=== PATIENT | male | born 1975 | race Caucasian/White ===

== ENCOUNTER → 2017-03-28 | Outpatient (CLI) | payer SELFPAY ==
--- NOTE | 2017-03-28 10:29 | CT ---
CORONARY CALCIUM SCORE CLINICAL INDICATION: High risk family history. COMPARISON: None PROCEDURE: Gated images of the coronary arteries. Coronary artery calcium scoring was performed. FINDINGS: Coronary calcium scoring - 125 LM: 0 LAD: 124 LCX: 0 RCA: 1 IMPRESSION: 1. Calcium score of 125. This places the patient at above the 90th percentile for males of equivalent age. Definite, at least moderate atherosclerotic plaque. Mild coronary artery disease highly likely with significant narrowings possible. Reported By:
== END ==
LOC: RAD 09:28
PROVIDERS: ATTEND Nurse Practitioner Family
DX: Z13.6 Encounter for screening for cardiovascular disorders (principal)

== ENCOUNTER 2021-01-01 08:27 | Inpatient (IN) ==
[2021-01-01] MEDS ORDERED: DILAUDID INJ IVP ONE ×2 (08:47→08:59)
[2021-01-01] MEDS ORDERED: ZOFRAN INJ 4 MG VIAL IVP ONE ×2 (08:47→08:59)
[2021-01-01] MEDS ORDERED: NS 1000 ML 1,000 ML ONE (08:48)
[2021-01-01] MEDS ORDERED: DILAUDID INJ ONE (08:48)
[2021-01-01] MEDS ORDERED: ZOFRAN INJ 4 MG VIAL ONE (08:48)
[2021-01-01 09:01] LABS: BASOPHILS # (AUTO) 0.1 X10^3/uL (0.0-0.1); BASOPHILS % (AUTO) 0.3 % (0.2-1.0); EOSINOPHILS # (AUTO) 0.1 x10^3/uL (0.0-0.2); EOSINOPHILS % (AUTO) 0.4 % (0.9-2.9); HEMATOCRIT 40.8 % (42.0-54.0); HEMOGLOBIN 14.3 g/dL (13.5-18.0); LYMPHOCYTES # (AUTO) 1.3 X10^3/uL (1.3-2.9); LYMPHOCYTES % (AUTO) 6.6 % (21.0-51.0); MEAN CORPUSCULAR HEMOGLOBIN 32.5 pg (27.0-34.0); MEAN CORPUSCULAR HGB CONC 35.1 g/dL (33.0-35.0); MEAN CORPUSCULAR VOLUME 92.7 fL (80.0-100.0); MEAN PLATELET VOLUME 7.8 fL (7.4-11.0); MONOCYTES # (AUTO) 1.3 x10^3/uL (0.3-0.8); MONOCYTES % (AUTO) 6.6 % (0.0-13.0); NEUTROPHILS # (AUTO) 17.1 x10^3/uL (2.2-4.8); NEUTROPHILS % (AUTO) 86.1 % (42.0-75.0); PLATELET COUNT 217 X10^3/uL (150.0-450.0); RED CELL DISTRIBUTION WIDTH 13.2 % (11.6-16.5); WHITE BLOOD COUNT 19.9 X10^3/uL (3.6-10.0)
[2021-01-01] MEDS ORDERED: NS 1000 ML 1,000 ML IV ONE (09:01)
--- NOTE | 2021-01-01 09:04 | DR.ABDMALE ---
HPI Time seen Time Seen by Provider: 01/01/21 08:59 PCP Primary Care Physician: [facility] Complaint Chief Complaint Doctors Comments: LLQ abd pain x 3 days. worse w movememnt. denies f/c. mild nausea. Chief Complaint:: Pt c/o left lower quadrant abd pain since Friday. He states he has had decreased urine output since Friday. Pt also reports n/v/d and fever. COVID-19 Coronavirus risk:travel/contact w/high risk person: No Has patient experienced Coronavirus symptoms: No Reviewed Nurses Notes Review: Yes Source History provided by:: SELF Mode of arrival Mode of Arrival: Ambulatory Timing Onset of Chief Complaint: 12/29/20 PMH PMH Past Medical History: Yes Past Medical History: Arthritis and Dyslipidemia Past Surgical History: Yes Surgical History: Ortho Surgery Past Surgical History Comment: eye surgery Family History History of Family Medical Conditions: No Social History Does patient currently use any type of tobacco product: Yes Have you used tobacco products in the last 12 months: Yes Type of Tobacco Use: Smokeless Does any household member use tobacco: No Alcohol Use: Occasionally Do you use any recreational Drugs:: No Lives With: Alone Lives Where: Home Travel Risk Coronavirus risk:travel/contact w/high risk person: No Has patient experienced Coronavirus symptoms: No Infectious screening In the last 2 months have you had wt loss of >10#?: NO Have you had fever, night sweats or hemotysis?: No Have you traveled outside the country in the last 6 months?: No Isolation: Standard ROS Review of Systems Constitutional: See HPI Eyes: No Symptoms Reported ENTM: No Symptoms Reported Respiratoy: No Symptoms Reported Cardiovascular: No Symptoms Reported Gastrointestinal/Abdominal: See HPI Genitourinary: No Symptoms Reported Neurological: No Symptoms Reported Musculoskeletal: No Symptoms Reported Integumentary: No Symptoms Reported Hematologic/Lymphatic: No Symptoms Reported All Other Systems: Reviewed and Negative PE Vital Signs Vital Signs: Temp Pulse Resp BP Pulse Ox 01/01/21 11:00 93 H 134/79 97 01/01/21 10:57 93 H 96 01/01/21 10:30 80 121/67 98 01/01/21 10:15 87 98 01/01/21 10:00 82 118/61 97 01/01/21 09:45 87 96 01/01/21 09:30 91 H 130/73 95 01/01/21 09:15 94 H 96 01/01/21 09:03 16 01/01/21 09:00 99 H 135/74 94 L 01/01/21 08:59 100 H 134/77 94 L 01/01/21 08:58 101 H 95 01/01/21 08:33 96.0 F L 129 H 16 135/90 96 General General Appearance: Alert and In Distress Head Head Exam: Normal Inspection, Atraumatic and Normocephalic Eyes Eye exam: Normal Appearance Neck Neck Exam: Normal Inspection Respiratory Respiratory Exam: Normal Lung Sounds Bilat; negative Accessory Muscle Use Cardiovascular Cardiovascular Exam: Normal Rhythm and Tachycardia Abdominal Exam Abdominal Exam: Tenderness (LLQ), Guarding, Rebound and Dimnished Bowel Sounds; negative Normal Bowel Sounds, Distention, Rigidity, Trauma, Incision and Ascites Back Back Exam: Normal Inspection and Full ROM Extremeties Extremities Exam: Normal Inspection Neurologic Neurological Exam: Alert and Oriented X3 Skin Skin Exam: Warm, Dry and Intact ROR Labs Reviewed Laboratory Results Reviewed?: Yes (elev WBC) Result Diagrams: 01/01/21 08:53 01/01/21 08:53 Laboratory: WBC 19.9 X10^3/uL (3.6-10.0) H 01/01/21 08:53 RBC 4.40 X10^6/uL (4.7-6.0) L 01/01/21 08:53 Hgb 14.3 g/dL (13.5-18.0) 01/01/21 08:53 Hct 40.8 % (42.0-54.0) L 01/01/21 08:53 MCV 92.7 fL (80.0-100.0) 01/01/21 08:53 MCH 32.5 pg (27.0-34.0) 01/01/21 08:53 MCHC 35.1 g/dL (33.0-35.0) H 01/01/21 08:53 RDW 13.2 % (11.6-16.5) 01/01/21 08:53 Plt Count 217 X10^3/uL (150.0-450.0) 01/01/21 08:53 MPV 7.8 fL (7.4-11.0) 01/01/21 08:53 Neut % (Auto) 86.1 % (42.0-75.0) H 01/01/21 08:53 Lymph % (Auto) 6.6 % (21.0-51.0) L 01/01/21 08:53 [place] % (Auto) 6.6 % (0.0-13.0) 01/01/21 08:53 Eos % (Auto) 0.4 % (0.9-2.9) L 01/01/21 08:53 Baso % (Auto) 0.3 % (0.2-1.0) 01/01/21 08:53 Neut # (Auto) 17.1 x10^3/uL (2.2-4.8) H 01/01/21 08:53 Lymph # (Auto) 1.3 X10^3/uL (1.3-2.9) 01/01/21 08:53 [place] # (Auto) 1.3 x10^3/uL (0.3-0.8) H 01/01/21 08:53 Eos # (Auto) 0.1 x10^3/uL (0.0-0.2) 01/01/21 08:53 Baso # (Auto) 0.1 X10^3/uL (0.0-0.1) 01/01/21 08:53 Absolute Nucleated RBC 0.0 /100WBC 01/01/21 08:53 Sodium 133 mmol/L (136-145) L 01/01/21 08:53 Corrected Sodium 134 mmol/L (136-145) L 01/01/21 08:53 Potassium 3.6 mmol/L (3.5-5.1) 01/01/21 08:53 Chloride 96 mmol/L (98-107) L 01/01/21 08:53 Carbon Dioxide 26.5 mmol/L (21-32) 01/01/21 08:53 BUN 12 mg/dL (7-18) 01/01/21 08:53 Creatinine 1.35 mg/dL (0.70-1.30) H 01/01/21 08:53 Est GFR (MDRD) Af Amer > 60 (>60) 01/01/21 08:53 Est GFR (MDRD) Non-Af > 60 (>60) 01/01/21 08:53 Glucose 135 mg/dL (65-99) H 01/01/21 08:53 Calcium 9.2 mg/dL (8.5-10.1) 01/01/21 08:53 Corrected Calcium 9.8 mg/dL (8.5-10.1) 01/01/21 08:53 Total Bilirubin 0.80 mg/dL (0.2-1.0) 01/01/21 08:53 AST 17 Units/L (15-37) 01/01/21 08:53 ALT 29 Units/L (12-78) 01/01/21 08:53 Alkaline Phosphatase 49 Units/L (46-116) 01/01/21 08:53 Total Protein 8.0 g/dL (6.4-8.2) 01/01/21 08:53 Albumin 3.3 g/dL (3.4-5.0) L 01/01/21 08:53 Globulin 4.7 g/dL (2.5-4.5) H 01/01/21 08:53 Albumin/Globulin Ratio 0.7 Ratio (1.1-2.1) L 01/01/21 08:53 XRAY X-ray Results: CT shows diverticultis w microperf and likely partial SBO Opioid Opioid Risk Tool Age (Kang box if 16-45): Yes History of Preadolescent Sexual Abuse: No Total: 1 Total Score Risk Category: Low Risk Copyright: Redd [employer] predicting aberrant behaviors Diagnosis Discharge Problem: Acute diverticulitis ADDITIONAL NOTES Additional Notes Additional Notes: admit to Dr Goyal
[2021-01-01 09:14] LABS: ALANINE AMINOTRANSFERASE 29 Units/L (12-78); ALBUMIN 3.3 g/dL (3.4-5.0); ALKALINE PHOSPHATASE 49 Units/L (46-116); ASPARTATE AMINO TRANSFERASE 17 Units/L (15-37); BLOOD UREA NITROGEN 12 mg/dL (7-18); CALCIUM 9.2 mg/dL (8.5-10.1); CARBON DIOXIDE 26.5 mmol/L (21-32); CHLORIDE 96 mmol/L (98-107); COR CA(FOR HYPOALB) 9.8 mg/dL (8.5-10.1); COR NA(FOR HYPERGLY) 134 mmol/L (136-145); CREATININE 1.35 mg/dL (0.70-1.30); SODIUM 133 mmol/L (136-145); eGFR NON BLACK RACES > 60 (>60)
--- NOTE | 2021-01-01 11:30 | CT ---
HISTORYABD PAIN, DECREASED URINE OUTPUT, N/V/DSTUDYCT abdomen pelvis with IV contrastCOMPARISONNoneTECHNIQUEMultiple axial images of the abdomen and pelvis were obtained from the lung bases to the pubic symphysis after the administration of IV contrast. Dose reduction techniques including Automated Exposure Control (AEC) and adjustment of mA and kV were utilized.FINDINGSThe visualized portions of the lung bases reveal probable bibasilar atelectasis. There is mild elevation of the right hemidiaphragm.Fluid is seen adjacent to the liver. There is mild hepatosplenomegaly. Likely fatty infiltration of the liver.Gallbladder appears normal. No biliary ductal dilation.No pancreatic abnormality is seen.The adrenal glands appear normal.Right kidney appears normal. 3.0 cm simple cyst is seen in the mid left kidney. In the lower left kidney there is a simple cyst measuring 9 mm, also. No nephrolithiasis or hydronephrosis. Ureters and bladder appear normal.Diverticulitis is suspected in the proximal sigmoid colon. Adjacent peritonitis changes are seen with likely secondary wall thickening in the small bowel in the left lower quadrant. There is slight dilation of the small bowel proximal to this region suggesting partial obstruction from these changes. Micro perforation is seen in the fat adjacent to the diverticulitis. No abscess is seen. Normal appendix is seen.No abnormalities are seen of the reproductive organs.Abdominal aorta is normal in size.Shotty reactive mesenteric lymph nodes are seen.Mild free fluid is seen in the pelvis and left pericolic gutter.No acute bony abnormality is seen.IMPRESSIONSigmoid diverticulitis with microperforation. No abscess is seen.Adjacent peritonitis is seen with localize wall thickening in the small bowel likely secondary to the peritonitis. This causes partial small-bowel obstruction.Electronically signed by: Quintin Lopez (Jan 01, 2021 11:28:47)
[2021-01-01] MEDS ORDERED: CIPRO IV 400 MG PREMIX* 400 MG/200 ML IV.SOLN. IV ONE ×2 (11:46→11:55)
[2021-01-01] MEDS ORDERED: ZOSYN VIAL 3.375 GRAMS 3.375 G in NS 100 ML IV + SPIKE MINIBAG* 100 ML IV ONE (11:48)
[2021-01-01] MEDS ORDERED: ZOSYN VIAL 3.375 GRAMS IV ONE ×2 (11:54→20:26)
[2021-01-01] MEDS ORDERED: NS 100 ML IV + SPIKE MINIBAG* 100 ML IV ONE ×2 (11:55→20:26)
[2021-01-01 12:17] LABS: BILIRUBIN,URINE NEGATIVE (NEGATIVE); BLOOD/HEMOGLOBIN,URINE NEGATIVE (NEGATIVE); GLUCOSE, URINE NEGATIVE (NEGATIVE); KETONES,URINE NEGATIVE (NEGATIVE); LEUKOCYTE ESTERASE ,URINE NEGATIVE (NEGATIVE); NITRITES,URINE NEGATIVE (NEGATIVE); PROTEIN,URINE 1+ (NEGATIVE); UROBILINOGEN,URINE NORMAL (NORMAL)
[2021-01-01 12:19] LABS: APPEARANCE,URINE CLEAR (CLEAR); COLOR,URINE YELLOW (YELLOW)
[2021-01-01 12:38] LABS: AMORPHOUS SEDIMENT,UR TRACE /HPF (NEGATIVE); BACTERIA,URINE NEGATIVE /HPF (NEGATIVE); MUCUS,URINE FEW /HPF (NEGATIVE); RBC,URINE NONE SEEN /HPF (0-3); SQUAMOUS EPITHELIAL CELL,UR RARE /HPF (NEGATIVE)
[2021-01-01] MEDS: D5 1/2 NS 1000 ML 1,000 ML IV SCH ×2 (15:10→22:15)
[2021-01-01] MEDS: FLAGYL IV PREMIX 500 MG BAG 500 MG/100 ML BAG IV SCH ×2 (15:10→22:18)
[2021-01-01] MEDS: ZOSYN VIAL 3.375 GRAMS 3.375 G in NS 100 ML IV + SPIKE MINIBAG* 100 ML IV SCH (21:47)
[2021-01-02] MEDS: ZOSYN VIAL 3.375 GRAMS 3.375 G in NS 100 ML IV + SPIKE MINIBAG* 100 ML IV SCH ×3 (05:13→21:03)
[2021-01-02] MEDS: D5 1/2 NS 1000 ML 1,000 ML IV SCH ×3 (06:51→15:10)
[2021-01-02] MEDS: FLAGYL IV PREMIX 500 MG BAG 500 MG/100 ML BAG IV SCH ×2 (06:51→14:00)
[2021-01-02 07:45] LABS: BASOPHILS # (AUTO) 0.1 X10^3/uL (0.0-0.1); BASOPHILS % (AUTO) 0.5 % (0.2-1.0); EOSINOPHILS # (AUTO) 0.2 x10^3/uL (0.0-0.2); EOSINOPHILS % (AUTO) 1.5 % (0.9-2.9); HEMATOCRIT 35.3 % (42.0-54.0); LYMPHOCYTES # (AUTO) 1.2 X10^3/uL (1.3-2.9); LYMPHOCYTES % (AUTO) 9.2 % (21.0-51.0); MEAN CORPUSCULAR HEMOGLOBIN 31.8 pg (27.0-34.0); MEAN CORPUSCULAR VOLUME 93.4 fL (80.0-100.0); MEAN PLATELET VOLUME 7.7 fL (7.4-11.0); MONOCYTES % (AUTO) 7.5 % (0.0-13.0); NEUTROPHILS # (AUTO) 10.6 x10^3/uL (2.2-4.8); NEUTROPHILS % (AUTO) 81.3 % (42.0-75.0); PLATELET COUNT 198 X10^3/uL (150.0-450.0); RED BLOOD COUNT 3.78 X10^6/uL (4.7-6.0); RED CELL DISTRIBUTION WIDTH 12.9 % (11.6-16.5)
[2021-01-02 07:58] LABS: ALANINE AMINOTRANSFERASE 24 Units/L (12-78); ALBUMIN 2.6 g/dL (3.4-5.0); ALKALINE PHOSPHATASE 41 Units/L (46-116); ASPARTATE AMINO TRANSFERASE 20 Units/L (15-37); BLOOD UREA NITROGEN 7 mg/dL (7-18); CALCIUM 8.5 mg/dL (8.5-10.1); CARBON DIOXIDE 30.3 mmol/L (21-32); CHLORIDE 100 mmol/L (98-107); COR CA(FOR HYPOALB) 9.6 mg/dL (8.5-10.1); COR NA(FOR HYPERGLY) 136 mmol/L (136-145); CREATININE 1.06 mg/dL (0.70-1.30); SODIUM 136 mmol/L (136-145); TOTAL PROTEIN 6.8 g/dL (6.4-8.2); eGFR NON BLACK RACES > 60 (>60)
[2021-01-02] MEDS ORDERED: PROTONIX INJ 40 MG VIAL ONE (09:31)
--- NOTE | 2021-01-02 09:42 | DR.PROGNOT ---
Hospital Progress Notes - Progress Note for Day of: Progress Note Date: 01/02/21 - Chief Complaint Chief Complaint: less abdominal pain .. no nausea or vomiting. c/o sore throar and mild cough . had low grade fever last night . WBC is down to 13 . - Past Medical Family Social History Past Med/Fam/Surg Hx: No changes since H&P Allergies: Allergies No Known Drug Allergies Allergy (Verified 01/01/21 15:03) - Review Of Systems ROS: No change since H&P - Vital Signs Vital Signs: Temperature 99.4 F Pulse Rate [Left Radial] 73 Pulse Rate 83 Respiratory Rate 18 Blood Pressure [Right Arm] 115/69 Blood Pressure 118/73 O2 Sat by Pulse Oximetry 94 - Physical Exam Oriented: Normal Eyes: Normal Ear: Normal Nose: Normal Throat: Normal Respiratory: Normal Cardiovascular: Normal GI:Auscultation: Normal GI:Palpation: Normal GI: Tenderness: Diffuse (soft, flat abdomen with diffuse tenderness , more in LLQ and mild rebound .) Speech Pattern: Clear, Appropriate - Laboratory and Diagnostics Result Diagrams: 01/02/21 07:32 01/02/21 07:32 Labs: Laboratory WBC 13.0 X10^3/uL (3.6-10.0) H 01/02/21 07:32 RBC 3.78 X10^6/uL (4.7-6.0) L 01/02/21 07:32 Hgb 12.0 g/dL (13.5-18.0) L D 01/02/21 07:32 Hct 35.3 % (42.0-54.0) L 01/02/21 07:32 MCV 93.4 fL (80.0-100.0) 01/02/21 07:32 MCH 31.8 pg (27.0-34.0) 01/02/21 07:32 MCHC 34.0 g/dL (33.0-35.0) 01/02/21 07:32 RDW 12.9 % (11.6-16.5) 01/02/21 07:32 Plt Count 198 X10^3/uL (150.0-450.0) 01/02/21 07:32 MPV 7.7 fL (7.4-11.0) 01/02/21 07:32 Neut % (Auto) 81.3 % (42.0-75.0) H 01/02/21 07:32 Lymph % (Auto) 9.2 % (21.0-51.0) L 01/02/21 07:32 [place] % (Auto) 7.5 % (0.0-13.0) 01/02/21 07:32 Eos % (Auto) 1.5 % (0.9-2.9) 01/02/21 07:32 Baso % (Auto) 0.5 % (0.2-1.0) 01/02/21 07:32 Neut # (Auto) 10.6 x10^3/uL (2.2-4.8) H 01/02/21 07:32 Lymph # (Auto) 1.2 X10^3/uL (1.3-2.9) L 01/02/21 07:32 [place] # (Auto) 1.0 x10^3/uL (0.3-0.8) H 01/02/21 07:32 Eos # (Auto) 0.2 x10^3/uL (0.0-0.2) 01/02/21 07:32 Baso # (Auto) 0.1 X10^3/uL (0.0-0.1) 01/02/21 07:32 Absolute Nucleated RBC 0.0 /100WBC 01/02/21 07:32 Sodium 136 mmol/L (136-145) 01/02/21 07:32 Corrected Sodium 136 mmol/L (136-145) 01/02/21 07:32 Potassium 3.5 mmol/L (3.5-5.1) 01/02/21 07:32 Chloride 100 mmol/L (98-107) 01/02/21 07:32 Carbon Dioxide 30.3 mmol/L (21-32) 01/02/21 07:32 BUN 7 mg/dL (7-18) 01/02/21 07:32 Creatinine 1.06 mg/dL (0.70-1.30) 01/02/21 07:32 Est GFR (MDRD) Af Amer > 60 (>60) 01/02/21 07:32 Est GFR (MDRD) Non-Af > 60 (>60) 01/02/21 07:32 Glucose 114 mg/dL (65-99) H 01/02/21 07:32 Calcium 8.5 mg/dL (8.5-10.1) 01/02/21 07:32 Corrected Calcium 9.6 mg/dL (8.5-10.1) 01/02/21 07:32 Total Bilirubin 0.50 mg/dL (0.2-1.0) 01/02/21 07:32 AST 20 Units/L (15-37) 01/02/21 07:32 ALT 24 Units/L (12-78) 01/02/21 07:32 Alkaline Phosphatase 41 Units/L (46-116) L 01/02/21 07:32 Total Protein 6.8 g/dL (6.4-8.2) 01/02/21 07:32 Albumin 2.6 g/dL (3.4-5.0) L 01/02/21 07:32 Globulin 4.2 g/dL (2.5-4.5) 01/02/21 07:32 Albumin/Globulin Ratio 0.6 Ratio (1.1-2.1) L 01/02/21 07:32 Specimen Type Clean catch urine 01/01/21 12:08 Urine Color Yellow (YELLOW) 01/01/21 12:08 Urine Appearance Clear (CLEAR) 01/01/21 12:08 Urine pH 5.0 (5.0 - 8.0) 01/01/21 12:08 Ur Specific [place] 1.010 (1.000-1.030) 01/01/21 12:08 Urine Protein 1+ (NEGATIVE) 01/01/21 12:08 Urine Glucose (UA) Negative (NEGATIVE) 01/01/21 12:08 Urine Ketones Negative (NEGATIVE) 01/01/21 12:08 Urine Occult Blood Negative (NEGATIVE) 01/01/21 12:08 Urine Nitrite Negative (NEGATIVE) 01/01/21 12:08 Urine Bilirubin Negative (NEGATIVE) 01/01/21 12:08 Urine Urobilinogen Normal (NORMAL) 01/01/21 12:08 Ur Leukocyte Esterase Negative (NEGATIVE) 01/01/21 12:08 Urine RBC None seen /HPF (0-3) 01/01/21 12:08 Urine WBC None seen /HPF (0-5) 01/01/21 12:08 Ur Squamous Epith Cells Rare /HPF (NEGATIVE) 01/01/21 12:08 Amorphous Sediment Trace /HPF (NEGATIVE) 01/01/21 12:08 Urine Bacteria Negative /HPF (NEGATIVE) 01/01/21 12:08 Urine Mucus Few /HPF (NEGATIVE) 01/01/21 12:08 Ur Culture Indicated? No/not indicated 01/01/21 12:08 SARS-CoV-2 (PCR) Negative (NEGATIVE) 01/01/21 11:50 Influenza Type A (PCR) Negative (NEGATIVE) 01/01/21 11:50 Influenza Type B (PCR) Negative (NEGATIVE) 01/01/21 11:50 RSV (PCR) Negative (NEGATIVE) 01/01/21 11:50 - Assessment and Plan 1: acute sigmoid diverticulitis with localized perforation. mild peritonitis . URI . same plan . add protonix to IV . repeat Rapid covid 19 test . - Problem Patient Problems: Patient Problems Acute diverticulitis (Acute) K57.20
[2021-01-02] MEDS: PROTONIX INJ 40 MG VIAL IVP SCH ×2 (09:45→21:02)
[2021-01-02] MEDS: LOVENOX INJ 40 MG SYR SC SCH (10:11)
[2021-01-03] MEDS: FLAGYL IV PREMIX 500 MG BAG 500 MG/100 ML BAG IV SCH ×3 (00:58→14:06)
[2021-01-03] MEDS: D5 1/2 NS 1000 ML 1,000 ML IV SCH ×4 (00:58→14:43)
[2021-01-03 04:35] LABS: BASOPHILS # (AUTO) 0.1 X10^3/uL (0.0-0.1); BASOPHILS % (AUTO) 0.6 % (0.2-1.0); EOSINOPHILS # (AUTO) 0.2 x10^3/uL (0.0-0.2); EOSINOPHILS % (AUTO) 2.1 % (0.9-2.9); HEMATOCRIT 35.4 % (42.0-54.0); HEMOGLOBIN 12.2 g/dL (13.5-18.0); LYMPHOCYTES # (AUTO) 1.7 X10^3/uL (1.3-2.9); LYMPHOCYTES % (AUTO) 16.1 % (21.0-51.0); MEAN CORPUSCULAR HEMOGLOBIN 32.1 pg (27.0-34.0); MEAN CORPUSCULAR HGB CONC 34.6 g/dL (33.0-35.0); MEAN CORPUSCULAR VOLUME 92.8 fL (80.0-100.0); MEAN PLATELET VOLUME 8.1 fL (7.4-11.0); MONOCYTES # (AUTO) 0.6 x10^3/uL (0.3-0.8); MONOCYTES % (AUTO) 6.1 % (0.0-13.0); NEUTROPHILS # (AUTO) 7.9 x10^3/uL (2.2-4.8); NEUTROPHILS % (AUTO) 75.1 % (42.0-75.0); PLATELET COUNT 255 X10^3/uL (150.0-450.0); RED BLOOD COUNT 3.81 X10^6/uL (4.7-6.0); RED CELL DISTRIBUTION WIDTH 13.1 % (11.6-16.5); WHITE BLOOD COUNT 10.5 X10^3/uL (3.6-10.0)
[2021-01-03 04:46] LABS: ALANINE AMINOTRANSFERASE 23 Units/L (12-78); ALBUMIN 2.8 g/dL (3.4-5.0); ALKALINE PHOSPHATASE 40 Units/L (46-116); ASPARTATE AMINO TRANSFERASE 17 Units/L (15-37); BLOOD UREA NITROGEN 8 mg/dL (7-18); CALCIUM 8.7 mg/dL (8.5-10.1); CARBON DIOXIDE 31.4 mmol/L (21-32); CHLORIDE 101 mmol/L (98-107); COR CA(FOR HYPOALB) 9.7 mg/dL (8.5-10.1); COR NA(FOR HYPERGLY) 137 mmol/L (136-145); CREATININE 1.17 mg/dL (0.70-1.30); SODIUM 137 mmol/L (136-145); TOTAL PROTEIN 6.9 g/dL (6.4-8.2); eGFR NON BLACK RACES > 60 (>60)
[2021-01-03] MEDS: DILAUDID INJ IVP PRN ×4 (05:06→23:48)
[2021-01-03] MEDS: ZOSYN VIAL 3.375 GRAMS 3.375 G in NS 100 ML IV + SPIKE MINIBAG* 100 ML IV SCH ×3 (05:07→23:12)
[2021-01-03] MEDS: LOVENOX INJ 40 MG SYR SC SCH (08:20)
[2021-01-03] MEDS: PROTONIX INJ 40 MG VIAL IVP SCH ×2 (09:00→22:00)
--- NOTE | 2021-01-03 11:24 | DR.PROGNOT ---
Hospital Progress Notes - Progress Note for Day of: Progress Note Date: 01/03/21 - Chief Complaint Chief Complaint: c/o bloating feeling and lower abdominal pain. had small BM last night .. no nausea or vomiting. Covid testwas negative . CBC is normal today .. afebrile . - Past Medical Family Social History Past Med/Fam/Surg Hx: No changes since H&P Allergies: Allergies No Known Drug Allergies Allergy (Verified 01/01/21 15:03) - Review Of Systems ROS: No change since H&P - Vital Signs Vital Signs: Temperature 97.7 F Pulse Rate [Left Radial] 62 Pulse Rate 83 Respiratory Rate 18 Blood Pressure [Right Arm] 107/69 Blood Pressure 118/73 O2 Sat by Pulse Oximetry 98 - Physical Exam Oriented: Normal Eyes: Normal Ear: Normal Nose: Normal Throat: Normal Respiratory: Normal Cardiovascular: Normal GI:Auscultation: Normal GI:Palpation: Normal GI: Tenderness: Diffuse (soft, flat abdomen with diffuse tenderness , more in LLQ and mild rebound .) Speech Pattern: Clear, Appropriate - Laboratory and Diagnostics Result Diagrams: 01/03/21 03:54 01/03/21 03:54 Labs: Laboratory WBC 10.5 X10^3/uL (3.6-10.0) H 01/03/21 03:54 RBC 3.81 X10^6/uL (4.7-6.0) L 01/03/21 03:54 Hgb 12.2 g/dL (13.5-18.0) L 01/03/21 03:54 Hct 35.4 % (42.0-54.0) L 01/03/21 03:54 MCV 92.8 fL (80.0-100.0) 01/03/21 03:54 MCH 32.1 pg (27.0-34.0) 01/03/21 03:54 MCHC 34.6 g/dL (33.0-35.0) 01/03/21 03:54 RDW 13.1 % (11.6-16.5) 01/03/21 03:54 Plt Count 255 X10^3/uL (150.0-450.0) 01/03/21 03:54 MPV 8.1 fL (7.4-11.0) 01/03/21 03:54 Neut % (Auto) 75.1 % (42.0-75.0) H 01/03/21 03:54 Lymph % (Auto) 16.1 % (21.0-51.0) L 01/03/21 03:54 [place] % (Auto) 6.1 % (0.0-13.0) 01/03/21 03:54 Eos % (Auto) 2.1 % (0.9-2.9) 01/03/21 03:54 Baso % (Auto) 0.6 % (0.2-1.0) 01/03/21 03:54 Neut # (Auto) 7.9 x10^3/uL (2.2-4.8) H 01/03/21 03:54 Lymph # (Auto) 1.7 X10^3/uL (1.3-2.9) 01/03/21 03:54 [place] # (Auto) 0.6 x10^3/uL (0.3-0.8) 01/03/21 03:54 Eos # (Auto) 0.2 x10^3/uL (0.0-0.2) 01/03/21 03:54 Baso # (Auto) 0.1 X10^3/uL (0.0-0.1) 01/03/21 03:54 Absolute Nucleated RBC 0.0 /100WBC 01/03/21 03:54 Sodium 137 mmol/L (136-145) 01/03/21 03:54 Corrected Sodium 137 mmol/L (136-145) 01/03/21 03:54 Potassium 3.1 mmol/L (3.5-5.1) L 01/03/21 03:54 Chloride 101 mmol/L (98-107) 01/03/21 03:54 Carbon Dioxide 31.4 mmol/L (21-32) 01/03/21 03:54 BUN 8 mg/dL (7-18) 01/03/21 03:54 Creatinine 1.17 mg/dL (0.70-1.30) 01/03/21 03:54 Est GFR (MDRD) Af Amer > 60 (>60) 01/03/21 03:54 Est GFR (MDRD) Non-Af > 60 (>60) 01/03/21 03:54 Glucose 118 mg/dL (65-99) H 01/03/21 03:54 Calcium 8.7 mg/dL (8.5-10.1) 01/03/21 03:54 Corrected Calcium 9.7 mg/dL (8.5-10.1) 01/03/21 03:54 Total Bilirubin 0.40 mg/dL (0.2-1.0) 01/03/21 03:54 AST 17 Units/L (15-37) 01/03/21 03:54 ALT 23 Units/L (12-78) 01/03/21 03:54 Alkaline Phosphatase 40 Units/L (46-116) L 01/03/21 03:54 Total Protein 6.9 g/dL (6.4-8.2) 01/03/21 03:54 Albumin 2.8 g/dL (3.4-5.0) L 01/03/21 03:54 Globulin 4.1 g/dL (2.5-4.5) 01/03/21 03:54 Albumin/Globulin Ratio 0.7 Ratio (1.1-2.1) L 01/03/21 03:54 Specimen Type Clean catch urine 01/01/21 12:08 Urine Color Yellow (YELLOW) 01/01/21 12:08 Urine Appearance Clear (CLEAR) 01/01/21 12:08 Urine pH 5.0 (5.0 - 8.0) 01/01/21 12:08 Ur Specific [place] 1.010 (1.000-1.030) 01/01/21 12:08 Urine Protein 1+ (NEGATIVE) 01/01/21 12:08 Urine Glucose (UA) Negative (NEGATIVE) 01/01/21 12:08 Urine Ketones Negative (NEGATIVE) 01/01/21 12:08 Urine Occult Blood Negative (NEGATIVE) 01/01/21 12:08 Urine Nitrite Negative (NEGATIVE) 01/01/21 12:08 Urine Bilirubin Negative (NEGATIVE) 01/01/21 12:08 Urine Urobilinogen Normal (NORMAL) 01/01/21 12:08 Ur Leukocyte Esterase Negative (NEGATIVE) 01/01/21 12:08 Urine RBC None seen /HPF (0-3) 01/01/21 12:08 Urine WBC None seen /HPF (0-5) 01/01/21 12:08 Ur Squamous Epith Cells Rare /HPF (NEGATIVE) 01/01/21 12:08 Amorphous Sediment Trace /HPF (NEGATIVE) 01/01/21 12:08 Urine Bacteria Negative /HPF (NEGATIVE) 01/01/21 12:08 Urine Mucus Few /HPF (NEGATIVE) 01/01/21 12:08 Ur Culture Indicated? No/not indicated 01/01/21 12:08 SARS-CoV-2 (PCR) Negative (NEGATIVE) 01/01/21 11:50 Influenza Type A (PCR) Negative (NEGATIVE) 01/01/21 11:50 Influenza Type B (PCR) Negative (NEGATIVE) 01/01/21 11:50 RSV (PCR) Negative (NEGATIVE) 01/01/21 11:50 SARS CoV-2 RNA Rapid DEMETRIO Negative (NEGATIVE) 01/02/21 09:24 - Assessment and Plan 1: subsiding acute sigmoid diverticulitis with localized perforation. mild peritonitis . URI . same plan . add protonix to IV . start liquid diet .. - Problem Patient Problems: Patient Problems Acute diverticulitis (Acute) K57.92
[2021-01-03] MEDS ORDERED: POTASSIUM CHLORIDE LIQ 20 MEQ UDC PO PRN (15:09)
[2021-01-03] MEDS ORDERED: POTASSIUM CHL 40 MEQ/NS 0.45% 500 ML IV PRN (15:09)
[2021-01-03] MEDS ORDERED: POTASSIUM CHL 60 MEQ/NS 0.45% 500 ML IV PRN (15:09)
[2021-01-03] MEDS ORDERED: MICRO K EXTEN CAP 10 MEQ PO PRN (15:09)
[2021-01-03] MEDS ORDERED: KLOR-CON PO PRN (15:09)
[2021-01-03] MEDS: K-DUR TAB 20 MEQ PO PRN (15:47)
[2021-01-03] MEDS: MAGNESIUM SULFATE 1 GRAM/100 mL PREMIX 1 GM/100 ML BAG IV PRN ×2 (16:43→18:25)
[2021-01-03] MEDS ORDERED: ZOFRAN INJ 4 MG VIAL IVP PRN (18:47)
[2021-01-03] MEDS ORDERED: ZOFRAN INJ 4 MG VIAL ONE (18:56)
--- NOTE | 2021-01-03 19:18 | RAD ---
HISTORYABD PAIN ORTHO, EYESTUDYKUBCOMPARISONNoneFINDINGSEvaluation of the abdomen demonstrates a a few mildly dilated loops of small bowel in the mid abdomen suggesting localized ileus. No pathological soft tissue mass or yasmin cification can be observed. The bony structures are grossly intact.IMPRESSIONA few mildly dilated lo ops of small bowel in the mid abdomen suggestive of localized ileus.Electronically signed by: Kevyn mcbride (Jan 03, 2021 19:15:42)
[2021-01-03] MEDS ORDERED: DILAUDID INJ IVP ONE (20:20)
[2021-01-03] MEDS ORDERED: TORADOL 30 MG VIAL IVP PRN (21:56)
[2021-01-03] MEDS ORDERED: NS 100 ML IV 100 ML ONE (22:19)
--- NOTE | 2021-01-04 00:32 | CT ---
STUDY: CT ABDOMEN AND PELVIS WITH IV CONTRASTCOMPARISON: 01/01/2021TECHNIQUE: Axial images were acquired of the abdomen and pelvis with IV contrast. Sagittal and coronal reformatted images were provided. All images were reviewed in a variety of windows and levels.RADIATION REDUCTION TECHNIQUE: Automated exposure control, adjustment of the mA and/or kV according to patient size, or iterative reconstruction techniques were used.HISTORY: ABD PAIN, DIVERTICULITISFINDINGS:Visualized lower lung zones demonstrate a small right pleural effusion with dependent atelectatic changes. Heart size is normal. No pericardial effusion is seen. Moderate amount of free fluid is seen along the liver. The gallbladder contains dense material suggesting gallstones. Enteric tube is noted in the stomach. There is free fluid around the spleen. The spleen, pancreas, and adrenal glands are unremarkable. 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 Pericolonic inflammatory changes are again seen in the proximal sigmoid colon. This may represent acute diverticulitis. However it should also be noted that the adjacent loops of small bowel demonstrate marked wall thickening with marked surrounding mesenteric inflammatory changes. This could also represent a long segment small bowel form of enteritis which could be due to an infectious or inflammatory process. Micro perforation is noted adjacent to the sigmoid colon. Additional other scattered diverticular present. No evidence of bowel obstruction.Moderate amount of free fluid is also present in the mid abdomen. This is most notable adjacent to the edema within the mesentery in the left devika abdomen. No evidence of an abdominal aortic aneurysm or dissection. Urinary bladder is filled with fluid and is unremarkable.The visualized bones demonstrate degenerative changes. There are no concerning lytic or blastic lesions identified.IMPRESSION:Again noted is marked inflammatory changes in the left lower quadrant region of the abdomen compatible with the patient's known history of having acute diverticulitis with adjacent micro perforation. However the adjacent edema with free fluid and inflammatory changes in the surrounding mesentery appear progressively worsened when compared to the prior examination. Surgical consultation may be obtained as clinically indicated.Electronically signed by: Cristi Fischer (Jan 04, 2021 00:30:08)
[2021-01-04] MEDS: TORADOL 30 MG VIAL IVP PRN ×4 (01:40→22:25)
[2021-01-04 05:11] LABS: BASOPHILS % (AUTO) 0.1 % (0.2-1.0); EOSINOPHILS % (AUTO) 0.1 % (0.9-2.9); HEMATOCRIT 39.5 % (42.0-54.0); HEMOGLOBIN 13.8 g/dL (13.5-18.0); LYMPHOCYTES # (AUTO) 0.6 X10^3/uL (1.3-2.9); LYMPHOCYTES % (AUTO) 7.3 % (21.0-51.0); MEAN CORPUSCULAR HEMOGLOBIN 32.2 pg (27.0-34.0); MEAN CORPUSCULAR HGB CONC 34.9 g/dL (33.0-35.0); MEAN CORPUSCULAR VOLUME 92.4 fL (80.0-100.0); MEAN PLATELET VOLUME 7.7 fL (7.4-11.0); MONOCYTES # (AUTO) 0.7 x10^3/uL (0.3-0.8); MONOCYTES % (AUTO) 8.5 % (0.0-13.0); PLATELET COUNT 295 X10^3/uL (150.0-450.0); RED BLOOD COUNT 4.28 X10^6/uL (4.7-6.0); RED CELL DISTRIBUTION WIDTH 13.4 % (11.6-16.5); WHITE BLOOD COUNT 8.4 X10^3/uL (3.6-10.0)
[2021-01-04 05:18] LABS: ALANINE AMINOTRANSFERASE 19 Units/L (12-78); ALBUMIN 2.6 g/dL (3.4-5.0); ALKALINE PHOSPHATASE 34 Units/L (46-116); ASPARTATE AMINO TRANSFERASE 15 Units/L (15-37); BLOOD UREA NITROGEN 9 mg/dL (7-18); CALCIUM 8.5 mg/dL (8.5-10.1); CARBON DIOXIDE 24.9 mmol/L (21-32); CHLORIDE 102 mmol/L (98-107); COR CA(FOR HYPOALB) 9.6 mg/dL (8.5-10.1); COR NA(FOR HYPERGLY) 138 mmol/L (136-145); MAGNESIUM 1.9 mg/dL (1.7-2.9); SODIUM 137 mmol/L (136-145); TOTAL PROTEIN 6.5 g/dL (6.4-8.2); eGFR NON BLACK RACES > 60 (>60)
[2021-01-04] MEDS: FLAGYL IV PREMIX 500 MG BAG 500 MG/100 ML BAG IV SCH ×5 (05:26→23:05)
--- NOTE | 2021-01-04 05:56 | RAD ---
STUDY: ACUTE ABDOMEN SERIESCOMPARISON: NoneHISTORY: ABD PAINFINDINGS:CHEST:Enteric tube is seen with tip below the diaphragm most likely in the stomach.There is no focal consolidation seen.The heart size is normal.The mediastinum is unremarkable.There is no evidence of pleural effusion or gross pneumothorax.ABDOMEN:The bowel gas pattern is nonobstructive.There is no gross evidence of free air.There are no abnormal masses or calcification seen.The visualized bones demonstrate degenerative changes.IMPRESSION:Enteric tube is noted with tip below diaphragm most likely in the stomach.Electronically signed by: Cristi Fischer (Jan 04, 2021 05:54:15)
[2021-01-04] MEDS: D5 1/2 NS 1000 ML 1,000 ML IV SCH ×4 (07:16→23:05)
[2021-01-04] MEDS: ZOSYN VIAL 3.375 GRAMS 3.375 G in NS 100 ML IV + SPIKE MINIBAG* 100 ML IV SCH ×2 (07:58→15:00)
[2021-01-04] MEDS: LOVENOX INJ 40 MG SYR SC SCH (08:53)
[2021-01-04] MEDS: PROTONIX INJ 40 MG VIAL IVP SCH ×2 (09:07→22:09)
--- NOTE | 2021-01-04 10:44 | DR.PROGNOT ---
Hospital Progress Notes - Progress Note for Day of: Progress Note Date: 01/04/21 - Chief Complaint Chief Complaint: was c/o severe abdominal pain last night with bloating , distention and vomiting .. had low grade fever . had one episode of passing out . repeated abdominal CT showed same diverticulitis .no free air or abscess .dilated small bowel loops . feeling better this morning with less pain and afebrile . - Past Medical Family Social History Past Med/Fam/Surg Hx: No changes since H&P Allergies: Allergies No Known Drug Allergies Allergy (Verified 01/01/21 15:03) - Review Of Systems ROS: No change since H&P - Vital Signs Vital Signs: Temperature 97.8 F Pulse Rate [Left Radial] 91 Pulse Rate 83 Respiratory Rate 18 Blood Pressure [Right Arm] 108/65 Blood Pressure 118/73 O2 Sat by Pulse Oximetry 96 - Physical Exam Oriented: Normal Eyes: Normal Ear: Normal Nose: Normal Throat: Normal Respiratory: Normal Cardiovascular: Normal GI:Auscultation: Normal GI:Palpation: Normal GI: Tenderness: Diffuse (soft, flat abdomen with diffuse tenderness , more in LLQ and mild rebound .) Speech Pattern: Clear, Appropriate - Laboratory and Diagnostics Result Diagrams: 01/04/21 04:06 01/04/21 04:06 Labs: Laboratory WBC 8.4 X10^3/uL (3.6-10.0) 01/04/21 04:06 RBC 4.28 X10^6/uL (4.7-6.0) L 01/04/21 04:06 Hgb 13.8 g/dL (13.5-18.0) 01/04/21 04:06 Hct 39.5 % (42.0-54.0) L 01/04/21 04:06 MCV 92.4 fL (80.0-100.0) 01/04/21 04:06 MCH 32.2 pg (27.0-34.0) 01/04/21 04:06 MCHC 34.9 g/dL (33.0-35.0) 01/04/21 04:06 RDW 13.4 % (11.6-16.5) 01/04/21 04:06 Plt Count 295 X10^3/uL (150.0-450.0) 01/04/21 04:06 MPV 7.7 fL (7.4-11.0) 01/04/21 04:06 Neut % (Auto) 84.0 % (42.0-75.0) H 01/04/21 04:06 Lymph % (Auto) 7.3 % (21.0-51.0) L 01/04/21 04:06 [place] % (Auto) 8.5 % (0.0-13.0) 01/04/21 04:06 Eos % (Auto) 0.1 % (0.9-2.9) L 01/04/21 04:06 Baso % (Auto) 0.1 % (0.2-1.0) L 01/04/21 04:06 Neut # (Auto) 7.0 x10^3/uL (2.2-4.8) H 01/04/21 04:06 Lymph # (Auto) 0.6 X10^3/uL (1.3-2.9) L 01/04/21 04:06 [place] # (Auto) 0.7 x10^3/uL (0.3-0.8) 01/04/21 04:06 Eos # (Auto) 0.0 x10^3/uL (0.0-0.2) 01/04/21 04:06 Baso # (Auto) 0.0 X10^3/uL (0.0-0.1) 01/04/21 04:06 Absolute Nucleated RBC 0.0 /100WBC 01/04/21 04:06 Sodium 137 mmol/L (136-145) 01/04/21 04:06 Corrected Sodium 138 mmol/L (136-145) 01/04/21 04:06 Potassium 4.0 mmol/L (3.5-5.1) 01/04/21 04:06 Chloride 102 mmol/L (98-107) 01/04/21 04:06 Carbon Dioxide 24.9 mmol/L (21-32) 01/04/21 04:06 BUN 9 mg/dL (7-18) 01/04/21 04:06 Creatinine 1.10 mg/dL (0.70-1.30) 01/04/21 04:06 Est GFR (MDRD) Af Amer > 60 (>60) 01/04/21 04:06 Est GFR (MDRD) Non-Af > 60 (>60) 01/04/21 04:06 Glucose 146 mg/dL (65-99) H 01/04/21 04:06 Calcium 8.5 mg/dL (8.5-10.1) 01/04/21 04:06 Corrected Calcium 9.6 mg/dL (8.5-10.1) 01/04/21 04:06 Magnesium 1.9 mg/dL (1.7-2.9) 01/04/21 04:06 Total Bilirubin 0.70 mg/dL (0.2-1.0) 01/04/21 04:06 AST 15 Units/L (15-37) 01/04/21 04:06 ALT 19 Units/L (12-78) 01/04/21 04:06 Alkaline Phosphatase 34 Units/L (46-116) L 01/04/21 04:06 Total Protein 6.5 g/dL (6.4-8.2) 01/04/21 04:06 Albumin 2.6 g/dL (3.4-5.0) L 01/04/21 04:06 Globulin 3.9 g/dL (2.5-4.5) 01/04/21 04:06 Albumin/Globulin Ratio 0.7 Ratio (1.1-2.1) L 01/04/21 04:06 Carcinoembryonic Ag 1.4 ng/mL (0.0-3.0) 01/01/21 08:53 Specimen Type Clean catch urine 01/01/21 12:08 Urine Color Yellow (YELLOW) 01/01/21 12:08 Urine Appearance Clear (CLEAR) 01/01/21 12:08 Urine pH 5.0 (5.0 - 8.0) 01/01/21 12:08 Ur Specific [place] 1.010 (1.000-1.030) 01/01/21 12:08 Urine Protein 1+ (NEGATIVE) 01/01/21 12:08 Urine Glucose (UA) Negative (NEGATIVE) 01/01/21 12:08 Urine Ketones Negative (NEGATIVE) 01/01/21 12:08 Urine Occult Blood Negative (NEGATIVE) 01/01/21 12:08 Urine Nitrite Negative (NEGATIVE) 01/01/21 12:08 Urine Bilirubin Negative (NEGATIVE) 01/01/21 12:08 Urine Urobilinogen Normal (NORMAL) 01/01/21 12:08 Ur Leukocyte Esterase Negative (NEGATIVE) 01/01/21 12:08 Urine RBC None seen /HPF (0-3) 01/01/21 12:08 Urine WBC None seen /HPF (0-5) 01/01/21 12:08 Ur Squamous Epith Cells Rare /HPF (NEGATIVE) 01/01/21 12:08 Amorphous Sediment Trace /HPF (NEGATIVE) 01/01/21 12:08 Urine Bacteria Negative /HPF (NEGATIVE) 01/01/21 12:08 Urine Mucus Few /HPF (NEGATIVE) 01/01/21 12:08 Ur Culture Indicated? No/not indicated 01/01/21 12:08 SARS-CoV-2 (PCR) Negative (NEGATIVE) 01/01/21 11:50 Influenza Type A (PCR) Negative (NEGATIVE) 01/01/21 11:50 Influenza Type B (PCR) Negative (NEGATIVE) 01/01/21 11:50 RSV (PCR) Negative (NEGATIVE) 01/01/21 11:50 SARS CoV-2 RNA Rapid DEMETRIO Negative (NEGATIVE) 01/02/21 09:24 - Assessment and Plan 1: acute sigmoid diverticulitis with localized perforation. mild peritonitis . . added IV Clindamycin . add protonix to IV . keep NGT today .. - Problem Patient Problems: Patient Problems Acute diverticulitis (Acute) K57.92
[2021-01-04] MEDS: CLEOCIN 600 MG IV PREMIX 600 MG/50 ML BAG IV SCH ×2 (13:58→22:09)
[2021-01-04] MEDS: DILAUDID INJ IVP PRN (17:04)
[2021-01-05] MEDS: CLEOCIN 600 MG IV PREMIX 600 MG/50 ML BAG IV SCH ×3 (05:15→21:42)
[2021-01-05] MEDS: FLAGYL IV PREMIX 500 MG BAG 500 MG/100 ML BAG IV SCH ×4 (05:45→22:06)
[2021-01-05] MEDS: ZOSYN VIAL 3.375 GRAMS 3.375 G in NS 100 ML IV + SPIKE MINIBAG* 100 ML IV SCH ×3 (06:42)
[2021-01-05] MEDS: D5 1/2 NS 1000 ML 1,000 ML IV SCH ×3 (06:43→21:42)
[2021-01-05 07:19] LABS: BASOPHILS % (AUTO) 0.2 % (0.2-1.0); EOSINOPHILS # (AUTO) 0.2 x10^3/uL (0.0-0.2); EOSINOPHILS % (AUTO) 1.2 % (0.9-2.9); HEMATOCRIT 38.7 % (42.0-54.0); HEMOGLOBIN 13.1 g/dL (13.5-18.0); LYMPHOCYTES % (AUTO) 6.7 % (21.0-51.0); MEAN CORPUSCULAR HEMOGLOBIN 31.9 pg (27.0-34.0); MEAN CORPUSCULAR VOLUME 93.8 fL (80.0-100.0); MONOCYTES # (AUTO) 1.5 x10^3/uL (0.3-0.8); MONOCYTES % (AUTO) 10.8 % (0.0-13.0); NEUTROPHILS # (AUTO) 11.7 x10^3/uL (2.2-4.8); NEUTROPHILS % (AUTO) 81.1 % (42.0-75.0); PLATELET COUNT 302 X10^3/uL (150.0-450.0); RED BLOOD COUNT 4.12 X10^6/uL (4.7-6.0); RED CELL DISTRIBUTION WIDTH 14.1 % (11.6-16.5); WHITE BLOOD COUNT 14.4 X10^3/uL (3.6-10.0)
[2021-01-05 07:20] LABS: ALANINE AMINOTRANSFERASE 15 Units/L (12-78); ALBUMIN 2.3 g/dL (3.4-5.0); ALKALINE PHOSPHATASE 35 Units/L (46-116); ASPARTATE AMINO TRANSFERASE 11 Units/L (15-37); BLOOD UREA NITROGEN 19 mg/dL (7-18); CALCIUM 8.5 mg/dL (8.5-10.1); CARBON DIOXIDE 28.7 mmol/L (21-32); CHLORIDE 101 mmol/L (98-107); COR CA(FOR HYPOALB) 9.9 mg/dL (8.5-10.1); COR NA(FOR HYPERGLY) 138 mmol/L (136-145); CREATININE 1.29 mg/dL (0.70-1.30); SODIUM 137 mmol/L (136-145); TOTAL PROTEIN 6.2 g/dL (6.4-8.2); eGFR NON BLACK RACES > 60 (>60)
[2021-01-05] MEDS: TORADOL 30 MG VIAL IVP PRN ×2 (09:33→22:45)
[2021-01-05] MEDS: PROTONIX INJ 40 MG VIAL IVP SCH ×2 (09:44→21:42)
--- NOTE | 2021-01-05 10:15 | RAD ---
HISTORYABD PAIN, DIVERTICULITIS PSH: ORTHO, [id number] of the abdomen demonstrates a a few mildly dilated loops of small bowel within the mid abdomen suggesting localized ileus. No pathological soft tissue m ass or calcification can be observed. The bony structures are grossly intact.IMPRESSIONA few mildly dilated loops of small bowel in the mid abdomen suggestive of localized ileus similar to prior study 1Electronically signed by: Kevyn Wong (Jan 05, 2021 10:13:20)
[2021-01-05] MEDS: LOVENOX INJ 40 MG SYR SC SCH (10:18)
--- NOTE | 2021-01-05 13:11 | DR.PROGNOT ---
Hospital Progress Notes - Progress Note for Day of: Progress Note Date: 01/05/21 - Chief Complaint Chief Complaint: c/o bloating feeling .. feeling better with NGT in place . had small BM . WBC 14.4 .. BUN/CREa 19/1.2. temp 97.2 - Past Medical Family Social History Past Med/Fam/Surg Hx: No changes since H&P Allergies: Allergies No Known Drug Allergies Allergy (Verified 01/01/21 15:03) - Review Of Systems ROS: No change since H&P - Vital Signs Vital Signs: Temperature 97.8 F Pulse Rate [Left Radial] 110 Pulse Rate 83 Respiratory Rate 20 Blood Pressure [Right Arm] 102/66 Blood Pressure 118/73 O2 Sat by Pulse Oximetry 93 - Physical Exam Oriented: Normal Eyes: Normal Ear: Normal Nose: Normal Throat: Normal Respiratory: Normal Cardiovascular: Normal GI:Auscultation: Decreased GI: Tenderness: Diffuse (full with moderate distention and diffuse teness . no rebound .. BS + but hypoactive ..) Speech Pattern: Clear, Appropriate - Laboratory and Diagnostics Result Diagrams: 01/05/21 06:24 01/05/21 06:24 Labs: Laboratory WBC 14.4 X10^3/uL (3.6-10.0) H 01/05/21 06:24 RBC 4.12 X10^6/uL (4.7-6.0) L 01/05/21 06:24 Hgb 13.1 g/dL (13.5-18.0) L 01/05/21 06:24 Hct 38.7 % (42.0-54.0) L 01/05/21 06:24 MCV 93.8 fL (80.0-100.0) 01/05/21 06:24 MCH 31.9 pg (27.0-34.0) 01/05/21 06:24 MCHC 34.0 g/dL (33.0-35.0) 01/05/21 06:24 RDW 14.1 % (11.6-16.5) 01/05/21 06:24 Plt Count 302 X10^3/uL (150.0-450.0) 01/05/21 06:24 MPV 8.0 fL (7.4-11.0) 01/05/21 06:24 Neut % (Auto) 81.1 % (42.0-75.0) H 01/05/21 06:24 Lymph % (Auto) 6.7 % (21.0-51.0) L 01/05/21 06:24 [place] % (Auto) 10.8 % (0.0-13.0) 01/05/21 06:24 Eos % (Auto) 1.2 % (0.9-2.9) 01/05/21 06:24 Baso % (Auto) 0.2 % (0.2-1.0) 01/05/21 06:24 Neut # (Auto) 11.7 x10^3/uL (2.2-4.8) H 01/05/21 06:24 Lymph # (Auto) 1.0 X10^3/uL (1.3-2.9) L 01/05/21 06:24 [place] # (Auto) 1.5 x10^3/uL (0.3-0.8) H 01/05/21 06:24 Eos # (Auto) 0.2 x10^3/uL (0.0-0.2) 01/05/21 06:24 Baso # (Auto) 0.0 X10^3/uL (0.0-0.1) 01/05/21 06:24 Absolute Nucleated RBC 0.0 /100WBC 01/05/21 06:24 Sodium 137 mmol/L (136-145) 01/05/21 06:24 Corrected Sodium 138 mmol/L (136-145) 01/05/21 06:24 Potassium 3.6 mmol/L (3.5-5.1) 01/05/21 06:24 Chloride 101 mmol/L (98-107) 01/05/21 06:24 Carbon Dioxide 28.7 mmol/L (21-32) 01/05/21 06:24 BUN 19 mg/dL (7-18) H 01/05/21 06:24 Creatinine 1.29 mg/dL (0.70-1.30) 01/05/21 06:24 Est GFR (MDRD) Af Amer > 60 (>60) 01/05/21 06:24 Est GFR (MDRD) Non-Af > 60 (>60) 01/05/21 06:24 Glucose 123 mg/dL (65-99) H 01/05/21 06:24 Calcium 8.5 mg/dL (8.5-10.1) 01/05/21 06:24 Corrected Calcium 9.9 mg/dL (8.5-10.1) 01/05/21 06:24 Magnesium 1.9 mg/dL (1.7-2.9) 01/04/21 04:06 Total Bilirubin 0.70 mg/dL (0.2-1.0) 01/05/21 06:24 AST 11 Units/L (15-37) L 01/05/21 06:24 ALT 15 Units/L (12-78) 01/05/21 06:24 Alkaline Phosphatase 35 Units/L (46-116) L 01/05/21 06:24 Total Protein 6.2 g/dL (6.4-8.2) L 01/05/21 06:24 Albumin 2.3 g/dL (3.4-5.0) L 01/05/21 06:24 Globulin 3.9 g/dL (2.5-4.5) 01/05/21 06:24 Albumin/Globulin Ratio 0.6 Ratio (1.1-2.1) L 01/05/21 06:24 Carcinoembryonic Ag 1.4 ng/mL (0.0-3.0) 01/01/21 08:53 Specimen Type Clean catch urine 01/01/21 12:08 Urine Color Yellow (YELLOW) 01/01/21 12:08 Urine Appearance Clear (CLEAR) 01/01/21 12:08 Urine pH 5.0 (5.0 - 8.0) 01/01/21 12:08 Ur Specific [place] 1.010 (1.000-1.030) 01/01/21 12:08 Urine Protein 1+ (NEGATIVE) 01/01/21 12:08 Urine Glucose (UA) Negative (NEGATIVE) 01/01/21 12:08 Urine Ketones Negative (NEGATIVE) 01/01/21 12:08 Urine Occult Blood Negative (NEGATIVE) 01/01/21 12:08 Urine Nitrite Negative (NEGATIVE) 01/01/21 12:08 Urine Bilirubin Negative (NEGATIVE) 01/01/21 12:08 Urine Urobilinogen Normal (NORMAL) 01/01/21 12:08 Ur Leukocyte Esterase Negative (NEGATIVE) 01/01/21 12:08 Urine RBC None seen /HPF (0-3) 01/01/21 12:08 Urine WBC None seen /HPF (0-5) 01/01/21 12:08 Ur Squamous Epith Cells Rare /HPF (NEGATIVE) 01/01/21 12:08 Amorphous Sediment Trace /HPF (NEGATIVE) 01/01/21 12:08 Urine Bacteria Negative /HPF (NEGATIVE) 01/01/21 12:08 Urine Mucus Few /HPF (NEGATIVE) 01/01/21 12:08 Ur Culture Indicated? No/not indicated 01/01/21 12:08 SARS-CoV-2 (PCR) Negative (NEGATIVE) 01/01/21 11:50 Influenza Type A (PCR) Negative (NEGATIVE) 01/01/21 11:50 Influenza Type B (PCR) Negative (NEGATIVE) 01/01/21 11:50 RSV (PCR) Negative (NEGATIVE) 01/01/21 11:50 SARS CoV-2 RNA Rapid DEMETRIO Negative (NEGATIVE) 01/02/21 09:24 - Assessment and Plan 1: acute sigmoid diverticulitis with localized perforation. mild peritonitis . . ileus with partial SBO .. same plan with NGT , IVF and ATB .. - Problem Patient Problems: Patient Problems Acute diverticulitis (Acute) K57.92
[2021-01-05] MEDS: ZOSYN VIAL 3.375 GRAMS 3.375 G in NS 50 ML IV + SPIKE MINIBAG* 50 ML IV SCH ×2 (14:25→21:42)
[2021-01-05] MEDS ORDERED: MAGNESIUM SULFATE 1 GRAM/100 mL PREMIX 2 G/200 ML BAG IV ONE (15:48)
[2021-01-05] MEDS: K-RIDER 10 MEQ/NS 100 ML 10 MEQ/100 ML BAG IV PRN (19:18)
[2021-01-06] MEDS: ZOSYN VIAL 3.375 GRAMS 3.375 G in NS 50 ML IV + SPIKE MINIBAG* 50 ML IV SCH ×3 (02:56→21:40)
[2021-01-06] MEDS: CLEOCIN 600 MG IV PREMIX 600 MG/50 ML BAG IV SCH ×3 (05:23→21:40)
[2021-01-06] MEDS: D5 1/2 NS 1000 ML 1,000 ML IV SCH ×3 (05:59→23:57)
[2021-01-06] MEDS: FLAGYL IV PREMIX 500 MG BAG 500 MG/100 ML BAG IV SCH ×3 (06:00→22:36)
[2021-01-06] MEDS: LOVENOX INJ 40 MG SYR SC SCH (08:06)
[2021-01-06] MEDS: PROTONIX INJ 40 MG VIAL IVP SCH ×2 (08:06→20:52)
[2021-01-06 09:21] LABS: ALANINE AMINOTRANSFERASE 13 Units/L (12-78); ALBUMIN 2.2 g/dL (3.4-5.0); ALKALINE PHOSPHATASE 42 Units/L (46-116); ASPARTATE AMINO TRANSFERASE 13 Units/L (15-37); BLOOD UREA NITROGEN 25 mg/dL (7-18); CALCIUM 8.2 mg/dL (8.5-10.1); CHLORIDE 101 mmol/L (98-107); COR CA(FOR HYPOALB) 9.6 mg/dL (8.5-10.1); CREATININE 1.23 mg/dL (0.70-1.30); SODIUM 137 mmol/L (136-145); TOTAL PROTEIN 5.8 g/dL (6.4-8.2); eGFR NON BLACK RACES > 60 (>60)
[2021-01-06 09:26] LABS: BASOPHILS # (AUTO) 0.6 X10^3/uL (0.0-0.1); BASOPHILS % (AUTO) 3.4 % (0.2-1.0); EOSINOPHILS # (AUTO) 0.3 x10^3/uL (0.0-0.2); EOSINOPHILS % (AUTO) 1.5 % (0.9-2.9); HEMATOCRIT 36.1 % (42.0-54.0); HEMOGLOBIN 12.1 g/dL (13.5-18.0); LYMPHOCYTES % (AUTO) 5.9 % (21.0-51.0); MEAN CORPUSCULAR HEMOGLOBIN 31.8 pg (27.0-34.0); MEAN CORPUSCULAR HGB CONC 33.6 g/dL (33.0-35.0); MEAN CORPUSCULAR VOLUME 94.7 fL (80.0-100.0); MEAN PLATELET VOLUME 8.3 fL (7.4-11.0); MONOCYTES % (AUTO) 5.8 % (0.0-13.0); NEUTROPHILS % (AUTO) 83.4 % (42.0-75.0); PLATELET COUNT 286 X10^3/uL (150.0-450.0); RED BLOOD COUNT 3.81 X10^6/uL (4.7-6.0); WHITE BLOOD COUNT 16.8 X10^3/uL (3.6-10.0)
--- NOTE | 2021-01-06 09:56 | RAD ---
HISTORYABD PAIN, DIVERTICULITISSTUDYKUB x-ray one viewCOMPARISONX-ray 01/05/2021FINDINGSEnteric tube passes into the stomach. There are dilated small bowel loops in the left upper quadrant that are similar to prior study. These measure up to 4.5 cm in diameter. Findings could be due to ileus or small-bowel obstruction.IMPRESSIONPersistent dilation of small bowel loops in the left upper quadrant.Electronically signed by: Quintin Lopez (Jan 06, 2021 09:53:38)
--- NOTE | 2021-01-06 10:07 | DR.PROGNOT ---
Hospital Progress Notes - Progress Note for Day of: Progress Note Date: 01/06/21 - Chief Complaint Chief Complaint: feeling better today .. less abdominal pain . had small BM and passing flatus . repeated Xray still showing dilated SB loops Lt side . afebrile .. - Past Medical Family Social History Past Med/Fam/Surg Hx: No changes since H&P Allergies: Allergies No Known Drug Allergies Allergy (Verified 01/01/21 15:03) - Review Of Systems ROS: No change since H&P - Vital Signs Vital Signs: Temperature 98.7 F Pulse Rate [Left Radial] 96 Pulse Rate 83 Respiratory Rate 18 Blood Pressure [Right Arm] 117/71 Blood Pressure 118/73 O2 Sat by Pulse Oximetry 93 - Physical Exam Oriented: Normal Eyes: Normal Ear: Normal Nose: Normal Throat: Normal Respiratory: Normal Cardiovascular: Normal GI:Auscultation: Decreased GI:Palpation: Normal GI: Tenderness: Diffuse (full with moderate distention and diffuse teness . no r ebound .. BS + but hypoactive ..) Speech Pattern: Clear, Appropriate - Laboratory and Diagnostics Result Diagrams: 01/06/21 05:00 01/06/21 05:00 Labs: Laboratory WBC 16.8 X10^3/uL (3.6-10.0) H 01/06/21 05:00 RBC 3.81 X10^6/uL (4.7-6.0) L 01/06/21 05:00 Hgb 12.1 g/dL (13.5-18.0) L 01/06/21 05:00 Hct 36.1 % (42.0-54.0) L 01/06/21 05:00 MCV 94.7 fL (80.0-100.0) 01/06/21 05:00 MCH 31.8 pg (27.0-34.0) 01/06/21 05:00 MCHC 33.6 g/dL (33.0-35.0) 01/06/21 05:00 RDW 14.0 % (11.6-16.5) 01/06/21 05:00 Plt Count 286 X10^3/uL (150.0-450.0) 01/06/21 05:00 MPV 8.3 fL (7.4-11.0) 01/06/21 05:00 Neut % (Auto) 83.4 % (42.0-75.0) H 01/06/21 05:00 Lymph % (Auto) 5.9 % (21.0-51.0) L 01/06/21 05:00 [place] % (Auto) 5.8 % (0.0-13.0) 01/06/21 05:00 Eos % (Auto) 1.5 % (0.9-2.9) 01/06/21 05:00 Baso % (Auto) 3.4 % (0.2-1.0) H 01/06/21 05:00 Neut # (Auto) 14.0 x10^3/uL (2.2-4.8) H 01/06/21 05:00 Lymph # (Auto) 1.0 X10^3/uL (1.3-2.9) L 01/06/21 05:00 [place] # (Auto) 1.0 x10^3/uL (0.3-0.8) H 01/06/21 05:00 Eos # (Auto) 0.3 x10^3/uL (0.0-0.2) H 01/06/21 05:00 Baso # (Auto) 0.6 X10^3/uL (0.0-0.1) H 01/06/21 05:00 Absolute Nucleated RBC 0.0 /100WBC 01/06/21 05:00 Sodium 137 mmol/L (136-145) 01/06/21 05:00 Corrected Sodium TNP 01/06/21 05:00 Potassium 3.2 mmol/L (3.5-5.1) L 01/06/21 05:00 Chloride 101 mmol/L (98-107) 01/06/21 05:00 Carbon Dioxide 25.0 mmol/L (21-32) 01/06/21 05:00 BUN 25 mg/dL (7-18) H 01/06/21 05:00 Creatinine 1.23 mg/dL (0.70-1.30) 01/06/21 05:00 Est GFR (MDRD) Af Amer > 60 (>60) 01/06/21 05:00 Est GFR (MDRD) Non-Af > 60 (>60) 01/06/21 05:00 Glucose 105 mg/dL (65-99) H 01/06/21 05:00 Calcium 8.2 mg/dL (8.5-10.1) L 01/06/21 05:00 Corrected Calcium 9.6 mg/dL (8.5-10.1) 01/06/21 05:00 Magnesium 2.6 mg/dL (1.7-2.9) 01/06/21 05:00 Total Bilirubin 0.50 mg/dL (0.2-1.0) 01/06/21 05:00 AST 13 Units/L (15-37) L 01/06/21 05:00 ALT 13 Units/L (12-78) 01/06/21 05:00 Alkaline Phosphatase 42 Units/L (46-116) L 01/06/21 05:00 Total Protein 5.8 g/dL (6.4-8.2) L 01/06/21 05:00 Albumin 2.2 g/dL (3.4-5.0) L 01/06/21 05:00 Globulin 3.6 g/dL (2.5-4.5) 01/06/21 05:00 Albumin/Globulin Ratio 0.6 Ratio (1.1-2.1) L 01/06/21 05:00 Carcinoembryonic Ag 1.4 ng/mL (0.0-3.0) 01/01/21 08:53 Specimen Type Clean catch urine 01/01/21 12:08 Urine Color Yellow (YELLOW) 01/01/21 12:08 Urine Appearance Clear (CLEAR) 01/01/21 12:08 Urine pH 5.0 (5.0 - 8.0) 01/01/21 12:08 Ur Specific [place] 1.010 (1.000-1.030) 01/01/21 12:08 Urine Protein 1+ (NEGATIVE) 01/01/21 12:08 Urine Glucose (UA) Negative (NEGATIVE) 01/01/21 12:08 Urine Ketones Negative (NEGATIVE) 01/01/21 12:08 Urine Occult Blood Negative (NEGATIVE) 01/01/21 12:08 Urine Nitrite Negative (NEGATIVE) 01/01/21 12:08 Urine Bilirubin Negative (NEGATIVE) 01/01/21 12:08 Urine Urobilinogen Normal (NORMAL) 01/01/21 12:08 Ur Leukocyte Esterase Negative (NEGATIVE) 01/01/21 12:08 Urine RBC None seen /HPF (0-3) 01/01/21 12:08 Urine WBC None seen /HPF (0-5) 01/01/21 12:08 Ur Squamous Epith Cells Rare /HPF (NEGATIVE) 01/01/21 12:08 Amorphous Sediment Trace /HPF (NEGATIVE) 01/01/21 12:08 Urine Bacteria Negative /HPF (NEGATIVE) 01/01/21 12:08 Urine Mucus Few /HPF (NEGATIVE) 01/01/21 12:08 Ur Culture Indicated? No/not indicated 01/01/21 12:08 SARS-CoV-2 (PCR) Negative (NEGATIVE) 01/01/21 11:50 Influenza Type A (PCR) Negative (NEGATIVE) 01/01/21 11:50 Influenza Type B (PCR) Negative (NEGATIVE) 01/01/21 11:50 RSV (PCR) Negative (NEGATIVE) 01/01/21 11:50 SARS CoV-2 RNA Rapid DEMETRIO Negative (NEGATIVE) 01/02/21 09:24 - Assessment and Plan 1: acute sigmoid diverticulitis with sealed perforation. mild peritonitis . . ileus with partial SBO .. to D/C NGT .. on clear liquid . same IVF and ATB .. - Problem Patient Problems: Patient Problems Acute diverticulitis (Acute) K57.92
[2021-01-06 10:08] LABS: BAND NEUTROPHILS % 8 % (0-10); PLATELET MORPHOLOGY COMMENT NORMAL (NORMAL)
[2021-01-06] MEDS: TORADOL 30 MG VIAL IVP PRN (22:35)
[2021-01-06] MEDS: DILAUDID INJ IVP PRN (22:35)
[2021-01-06] MEDS: K-RIDER 10 MEQ/NS 100 ML 10 MEQ/100 ML BAG IV PRN (23:57)
[2021-01-07] MEDS: K-RIDER 10 MEQ/NS 100 ML 10 MEQ/100 ML BAG IV PRN ×5 (01:43→10:58)
[2021-01-07] MEDS: ZOSYN VIAL 3.375 GRAMS 3.375 G in NS 50 ML IV + SPIKE MINIBAG* 50 ML IV SCH ×3 (05:05→22:15)
[2021-01-07] MEDS: CLEOCIN 600 MG IV PREMIX 600 MG/50 ML BAG IV SCH ×3 (05:59→21:10)
[2021-01-07] MEDS: FLAGYL IV PREMIX 500 MG BAG 500 MG/100 ML BAG IV SCH ×3 (06:35→21:15)
[2021-01-07 07:47] LABS: BASOPHILS % (AUTO) 0.2 % (0.2-1.0); EOSINOPHILS # (AUTO) 0.4 x10^3/uL (0.0-0.2); EOSINOPHILS % (AUTO) 2.3 % (0.9-2.9); HEMATOCRIT 32.4 % (42.0-54.0); HEMOGLOBIN 10.8 g/dL (13.5-18.0); LYMPHOCYTES # (AUTO) 1.4 X10^3/uL (1.3-2.9); LYMPHOCYTES % (AUTO) 8.6 % (21.0-51.0); MEAN CORPUSCULAR HEMOGLOBIN 31.1 pg (27.0-34.0); MEAN CORPUSCULAR HGB CONC 33.3 g/dL (33.0-35.0); MEAN CORPUSCULAR VOLUME 93.5 fL (80.0-100.0); MEAN PLATELET VOLUME 7.9 fL (7.4-11.0); MONOCYTES # (AUTO) 1.5 x10^3/uL (0.3-0.8); MONOCYTES % (AUTO) 9.6 % (0.0-13.0); NEUTROPHILS # (AUTO) 12.6 x10^3/uL (2.2-4.8); NEUTROPHILS % (AUTO) 79.3 % (42.0-75.0); PLATELET COUNT 332 X10^3/uL (150.0-450.0); RED BLOOD COUNT 3.46 X10^6/uL (4.7-6.0); RED CELL DISTRIBUTION WIDTH 14.4 % (11.6-16.5); WHITE BLOOD COUNT 15.8 X10^3/uL (3.6-10.0)
[2021-01-07 07:48] LABS: ALANINE AMINOTRANSFERASE 11 Units/L (12-78); ALBUMIN 2.1 g/dL (3.4-5.0); ALKALINE PHOSPHATASE 36 Units/L (46-116); ASPARTATE AMINO TRANSFERASE 11 Units/L (15-37); BLOOD UREA NITROGEN 22 mg/dL (7-18); CARBON DIOXIDE 27.4 mmol/L (21-32); CHLORIDE 102 mmol/L (98-107); COR CA(FOR HYPOALB) 9.5 mg/dL (8.5-10.1); COR NA(FOR HYPERGLY) 136 mmol/L (136-145); CREATININE 1.08 mg/dL (0.70-1.30); SODIUM 136 mmol/L (136-145); TOTAL PROTEIN 5.7 g/dL (6.4-8.2); eGFR NON BLACK RACES > 60 (>60)
[2021-01-07] MEDS: LOVENOX INJ 40 MG SYR SC SCH (08:50)
[2021-01-07] MEDS: PROTONIX INJ 40 MG VIAL IVP SCH ×2 (08:50→21:10)
[2021-01-07] MEDS: D5 1/2 NS 1000 ML 1,000 ML IV SCH ×2 (08:50→15:26)
--- NOTE | 2021-01-07 09:56 | DR.PROGNOT ---
Hospital Progress Notes - Progress Note for Day of: Progress Note Date: 01/07/21 - Chief Complaint Chief Complaint: c/o feeling full , mild nausea .. less abdominal pain . having small dark BM . repeated Xray still showing dilated SB loops Lt side . WBC 15.8. afebrile .. - Past Medical Family Social History Past Med/Fam/Surg Hx: No changes since H&P Allergies: Allergies No Known Drug Allergies Allergy (Verified 01/01/21 15:03) - Review Of Systems ROS: No change since H&P - Vital Signs Vital Signs: Temperature 99.4 F Pulse Rate [Left Radial] 84 Pulse Rate 83 Respiratory Rate 18 Blood Pressure [Right Arm] 120/68 Blood Pressure 118/73 O2 Sat by Pulse Oximetry 96 - Physical Exam Oriented: Normal Eyes: Normal Ear: Normal Nose: Normal Throat: Normal Respiratory: Normal Cardiovascular: Normal GI:Auscultation: Decreased GI:Palpation: Normal GI: Tenderness: Diffuse (full with moderate distention and diffuse teness . no rebound .. BS + but hypoactive ..) Speech Pattern: Clear, Appropriate - Laboratory and Diagnostics Result Diagrams: 01/07/21 07:14 01/07/21 07:14 Labs: Laboratory WBC 15.8 X10^3/uL (3.6-10.0) H 01/07/21 07:14 RBC 3.46 X10^6/uL (4.7-6.0) L 01/07/21 07:14 Hgb 10.8 g/dL (13.5-18.0) L 01/07/21 07:14 Hct 32.4 % (42.0-54.0) L 01/07/21 07:14 MCV 93.5 fL (80.0-100.0) 01/07/21 07:14 MCH 31.1 pg (27.0-34.0) 01/07/21 07:14 MCHC 33.3 g/dL (33.0-35.0) 01/07/21 07:14 RDW 14.4 % (11.6-16.5) 01/07/21 07:14 Plt Count 332 X10^3/uL (150.0-450.0) 01/07/21 07:14 Plt Count Comment Adequate (ADEQUATE) 01/06/21 05:00 MPV 7.9 fL (7.4-11.0) 01/07/21 07:14 Neut % (Auto) 79.3 % (42.0-75.0) H 01/07/21 07:14 Lymph % (Auto) 8.6 % (21.0-51.0) L 01/07/21 07:14 [place] % (Auto) 9.6 % (0.0-13.0) 01/07/21 07:14 Eos % (Auto) 2.3 % (0.9-2.9) 01/07/21 07:14 Baso % (Auto) 0.2 % (0.2-1.0) 01/07/21 07:14 Neut # (Auto) 12.6 x10^3/uL (2.2-4.8) H 01/07/21 07:14 Lymph # (Auto) 1.4 X10^3/uL (1.3-2.9) 01/07/21 07:14 [place] # (Auto) 1.5 x10^3/uL (0.3-0.8) H 01/07/21 07:14 Eos # (Auto) 0.4 x10^3/uL (0.0-0.2) H 01/07/21 07:14 Baso # (Auto) 0.0 X10^3/uL (0.0-0.1) 01/07/21 07:14 Absolute Nucleated RBC 0.0 /100WBC 01/07/21 07:14 Total Counted 100 01/06/21 05:00 Neutrophils % (Manual) 74 % (39-76) 01/06/21 05:00 Band Neutrophils % 8 % (0-10) 01/06/21 05:00 Lymphocytes % (Manual) 10 % (13-43) L 01/06/21 05:00 Monocytes % (Manual) 6 % (4-9) 01/06/21 05:00 Eosinophils % (Manual) 2 % (0-6) 01/06/21 05:00 Plt Morphology Comment Normal (NORMAL) 01/06/21 05:00 RBC Morphology Normal (NORMAL) 01/06/21 05:00 Sodium 136 mmol/L (136-145) 01/07/21 07:14 Corrected Sodium 136 mmol/L (136-145) 01/07/21 07:14 Potassium 3.5 mmol/L (3.5-5.1) 01/07/21 07:14 Chloride 102 mmol/L (98-107) 01/07/21 07:14 Carbon Dioxide 27.4 mmol/L (21-32) 01/07/21 07:14 BUN 22 mg/dL (7-18) H 01/07/21 07:14 Creatinine 1.08 mg/dL (0.70-1.30) 01/07/21 07:14 Est GFR (MDRD) Af Amer > 60 (>60) 01/07/21 07:14 Est GFR (MDRD) Non-Af > 60 (>60) 01/07/21 07:14 Glucose 120 mg/dL (65-99) H 01/07/21 07:14 Calcium 8.0 mg/dL (8.5-10.1) L 01/07/21 07:14 Corrected Calcium 9.5 mg/dL (8.5-10.1) 01/07/21 07:14 Magnesium 2.6 mg/dL (1.7-2.9) 01/06/21 05:00 Total Bilirubin 0.50 mg/dL (0.2-1.0) 01/07/21 07:14 AST 11 Units/L (15-37) L 01/07/21 07:14 ALT 11 Units/L (12-78) L 01/07/21 07:14 Alkaline Phosphatase 36 Units/L (46-116) L 01/07/21 07:14 Total Protein 5.7 g/dL (6.4-8.2) L 01/07/21 07:14 Albumin 2.1 g/dL (3.4-5.0) L 01/07/21 07:14 Globulin 3.6 g/dL (2.5-4.5) 01/07/21 07:14 Albumin/Globulin Ratio 0.6 Ratio (1.1-2.1) L 01/07/21 07:14 Carcinoembryonic Ag 1.4 ng/mL (0.0-3.0) 01/01/21 08:53 Specimen Type Clean catch urine 01/01/21 12:08 Urine Color Yellow (YELLOW) 01/01/21 12:08 Urine Appearance Clear (CLEAR) 01/01/21 12:08 Urine pH 5.0 (5.0 - 8.0) 01/01/21 12:08 Ur Specific [place] 1.010 (1.000-1.030) 01/01/21 12:08 Urine Protein 1+ (NEGATIVE) 01/01/21 12:08 Urine Glucose (UA) Negative (NEGATIVE) 01/01/21 12:08 Urine Ketones Negative (NEGATIVE) 01/01/21 12:08 Urine Occult Blood Negative (NEGATIVE) 01/01/21 12:08 Urine Nitrite Negative (NEGATIVE) 01/01/21 12:08 Urine Bilirubin Negative (NEGATIVE) 01/01/21 12:08 Urine Urobilinogen Normal (NORMAL) 01/01/21 12:08 Ur Leukocyte Esterase Negative (NEGATIVE) 01/01/21 12:08 Urine RBC None seen /HPF (0-3) 01/01/21 12:08 Urine WBC None seen /HPF (0-5) 01/01/21 12:08 Ur Squamous Epith Cells Rare /HPF (NEGATIVE) 01/01/21 12:08 Amorphous Sediment Trace /HPF (NEGATIVE) 01/01/21 12:08 Urine Bacteria Negative /HPF (NEGATIVE) 01/01/21 12:08 Urine Mucus Few /HPF (NEGATIVE) 01/01/21 12:08 Ur Culture Indicated? No/not indicated 01/01/21 12:08 SARS-CoV-2 (PCR) Negative (NEGATIVE) 01/01/21 11:50 Influenza Type A (PCR) Negative (NEGATIVE) 01/01/21 11:50 Influenza Type B (PCR) Negative (NEGATIVE) 01/01/21 11:50 RSV (PCR) Negative (NEGATIVE) 01/01/21 11:50 SARS CoV-2 RNA Rapid DEMETRIO Negative (NEGATIVE) 01/02/21 09:24 - Assessment and Plan 1: acute sigmoid diverticulitis with sealed perforation. mild peritonitis . . ileus with partial SBO .. same clear liquid . same IVF and ATB .. - Problem Patient Problems: Patient Problems Acute diverticulitis (Acute) K57.92
--- NOTE | 2021-01-07 15:14 | RAD ---
HISTORYdiverticulitisSTUDYKUB x-ray one viewCOMPARISONX-ray 01/06/2021FINDINGSPersistent dilation of small bowel loops in the left side of the abdomen. These measure up to 5.2 cm in diameter. Findings are concerning for small-bowel obstruction. There is little colonic air without dilation.IMPRESSIONPersistent dilation of left upper quadrant small bowel loops.Electronically signed by: Quintin Lopez (Jan 07, 2021 15:12:11)
[2021-01-08] MEDS: D5 1/2 NS 1000 ML 1,000 ML IV SCH ×5 (04:59→20:30)
[2021-01-08] MEDS ORDERED: FLAGYL IV PREMIX 500 MG BAG 500 MG/100 ML BAG IV ONE (05:16)
[2021-01-08] MEDS: ZOSYN VIAL 3.375 GRAMS 3.375 G in NS 50 ML IV + SPIKE MINIBAG* 50 ML IV SCH ×3 (05:17→21:20)
[2021-01-08] MEDS: CLEOCIN 600 MG IV PREMIX 600 MG/50 ML BAG IV SCH ×3 (05:17→21:30)
[2021-01-08] MEDS: PROTONIX INJ 40 MG VIAL IVP SCH ×2 (05:20→08:44)
[2021-01-08 05:38] LABS: BASOPHILS # (AUTO) 0.1 X10^3/uL (0.0-0.1); BASOPHILS % (AUTO) 0.4 % (0.2-1.0); EOSINOPHILS # (AUTO) 0.4 x10^3/uL (0.0-0.2); EOSINOPHILS % (AUTO) 2.7 % (0.9-2.9); HEMATOCRIT 31.3 % (42.0-54.0); HEMOGLOBIN 10.7 g/dL (13.5-18.0); LYMPHOCYTES # (AUTO) 1.9 X10^3/uL (1.3-2.9); LYMPHOCYTES % (AUTO) 13.5 % (21.0-51.0); MEAN CORPUSCULAR HEMOGLOBIN 31.6 pg (27.0-34.0); MEAN CORPUSCULAR HGB CONC 34.1 g/dL (33.0-35.0); MEAN CORPUSCULAR VOLUME 92.7 fL (80.0-100.0); MEAN PLATELET VOLUME 7.9 fL (7.4-11.0); MONOCYTES # (AUTO) 1.3 x10^3/uL (0.3-0.8); NEUTROPHILS # (AUTO) 10.7 x10^3/uL (2.2-4.8); NEUTROPHILS % (AUTO) 74.4 % (42.0-75.0); PLATELET COUNT 332 X10^3/uL (150.0-450.0); RED BLOOD COUNT 3.37 X10^6/uL (4.7-6.0); RED CELL DISTRIBUTION WIDTH 14.4 % (11.6-16.5); WHITE BLOOD COUNT 14.4 X10^3/uL (3.6-10.0)
[2021-01-08 05:48] LABS: ALANINE AMINOTRANSFERASE 10 Units/L (12-78); ALKALINE PHOSPHATASE 30 Units/L (46-116); ASPARTATE AMINO TRANSFERASE 13 Units/L (15-37); BLOOD UREA NITROGEN 12 mg/dL (7-18); CALCIUM 7.7 mg/dL (8.5-10.1); CARBON DIOXIDE 26.3 mmol/L (21-32); CHLORIDE 102 mmol/L (98-107); COR CA(FOR HYPOALB) 9.3 mg/dL (8.5-10.1); COR NA(FOR HYPERGLY) 135 mmol/L (136-145); CREATININE 0.91 mg/dL (0.70-1.30); SODIUM 135 mmol/L (136-145); TOTAL PROTEIN 5.6 g/dL (6.4-8.2); eGFR NON BLACK RACES > 60 (>60)
[2021-01-08 06:06] LABS: PLATELET MORPHOLOGY COMMENT NORMAL (NORMAL)
[2021-01-08] MEDS: FLAGYL IV PREMIX 500 MG BAG 500 MG/100 ML BAG IV SCH ×3 (07:21→22:35)
[2021-01-08] MEDS: LOVENOX INJ 40 MG SYR SC SCH (08:35)
--- NOTE | 2021-01-08 10:47 | DR.PROGNOT ---
Hospital Progress Notes - Progress Note for Day of: Progress Note Date: 01/08/21 - Chief Complaint Chief Complaint: c/o feeling full , mild nausea , no vomiting .. small BM. repeated Xray still showing dilated SB loops Lt side . WBC 14.4 lytes normal .. afebrile .. - Past Medical Family Social History Past Med/Fam/Surg Hx: No changes since H&P Allergies: Allergies No Known Drug Allergies Allergy (Verified 01/01/21 15:03) - Review Of Systems ROS: No change since H&P - Vital Signs Vital Signs: Temperature 99.0 F Pulse Rate [Left Radial] 83 Pulse Rate 83 Respiratory Rate 18 Blood Pressure [Right Arm] 107/66 Blood Pressure 118/73 O2 Sat by Pulse Oximetry 97 - Physical Exam Oriented: Normal Eyes: Normal Ear: Normal Nose: Normal Throat: Normal Respiratory: Normal Cardiovascular: Normal GI:Auscultation: Decreased GI:Palpation: Normal GI: Tenderness: Diffuse (full with moderate distention and diffuse teness . no rebound .. BS + but hypoactive ..) Speech Pattern: Clear, Appropriate - Laboratory and Diagnostics Result Diagrams: 01/08/21 04:52 01/08/21 04:52 Labs: Laboratory WBC 14.4 X10^3/uL (3.6-10.0) H 01/08/21 04:52 RBC 3.37 X10^6/uL (4.7-6.0) L 01/08/21 04:52 Hgb 10.7 g/dL (13.5-18.0) L 01/08/21 04:52 Hct 31.3 % (42.0-54.0) L 01/08/21 04:52 MCV 92.7 fL (80.0-100.0) 01/08/21 04:52 MCH 31.6 pg (27.0-34.0) 01/08/21 04:52 MCHC 34.1 g/dL (33.0-35.0) 01/08/21 04:52 RDW 14.4 % (11.6-16.5) 01/08/21 04:52 Plt Count 332 X10^3/uL (150.0-450.0) 01/08/21 04:52 Plt Count Comment Adequate (ADEQUATE) 01/08/21 04:52 MPV 7.9 fL (7.4-11.0) 01/08/21 04:52 Neut % (Auto) 74.4 % (42.0-75.0) 01/08/21 04:52 Lymph % (Auto) 13.5 % (21.0-51.0) L 01/08/21 04:52 [place] % (Auto) 9.0 % (0.0-13.0) 01/08/21 04:52 Eos % (Auto) 2.7 % (0.9-2.9) 01/08/21 04:52 Baso % (Auto) 0.4 % (0.2-1.0) 01/08/21 04:52 Neut # (Auto) 10.7 x10^3/uL (2.2-4.8) H 01/08/21 04:52 Lymph # (Auto) 1.9 X10^3/uL (1.3-2.9) 01/08/21 04:52 [place] # (Auto) 1.3 x10^3/uL (0.3-0.8) H 01/08/21 04:52 Eos # (Auto) 0.4 x10^3/uL (0.0-0.2) H 01/08/21 04:52 Baso # (Auto) 0.1 X10^3/uL (0.0-0.1) 01/08/21 04:52 Absolute Nucleated RBC 0.0 /100WBC 01/08/21 04:52 Total Counted 100 01/08/21 04:52 Neutrophils % (Manual) 72 % (39-76) 01/08/21 04:52 Band Neutrophils % 8 % (0-10) 01/06/21 05:00 Lymphocytes % (Manual) 20 % (13-43) 01/08/21 04:52 Monocytes % (Manual) 3 % (4-9) L 01/08/21 04:52 Eosinophils % (Manual) 5 % (0-6) 01/08/21 04:52 Plt Morphology Comment Normal (NORMAL) 01/08/21 04:52 RBC Morphology Normal (NORMAL) 01/08/21 04:52 Sodium 135 mmol/L (136-145) L 01/08/21 04:52 Corrected Sodium 135 mmol/L (136-145) L 01/08/21 04:52 Potassium 3.4 mmol/L (3.5-5.1) L 01/08/21 04:52 Chloride 102 mmol/L (98-107) 01/08/21 04:52 Carbon Dioxide 26.3 mmol/L (21-32) 01/08/21 04:52 BUN 12 mg/dL (7-18) 01/08/21 04:52 Creatinine 0.91 mg/dL (0.70-1.30) 01/08/21 04:52 Est GFR (MDRD) Af Amer > 60 (>60) 01/08/21 04:52 Est GFR (MDRD) Non-Af > 60 (>60) 01/08/21 04:52 Glucose 115 mg/dL (65-99) H 01/08/21 04:52 Calcium 7.7 mg/dL (8.5-10.1) L 01/08/21 04:52 Corrected Calcium 9.3 mg/dL (8.5-10.1) 01/08/21 04:52 Magnesium 2.6 mg/dL (1.7-2.9) 01/06/21 05:00 Total Bilirubin 0.40 mg/dL (0.2-1.0) 01/08/21 04:52 AST 13 Units/L (15-37) L 01/08/21 04:52 ALT 10 Units/L (12-78) L 01/08/21 04:52 Alkaline Phosphatase 30 Units/L (46-116) L 01/08/21 04:52 Total Protein 5.6 g/dL (6.4-8.2) L 01/08/21 04:52 Albumin 2.0 g/dL (3.4-5.0) L 01/08/21 04:52 Globulin 3.6 g/dL (2.5-4.5) 01/08/21 04:52 Albumin/Globulin Ratio 0.6 Ratio (1.1-2.1) L 01/08/21 04:52 Carcinoembryonic Ag 1.4 ng/mL (0.0-3.0) 01/01/21 08:53 Specimen Type Clean catch urine 01/01/21 12:08 Urine Color Yellow (YELLOW) 01/01/21 12:08 Urine Appearance Clear (CLEAR) 01/01/21 12:08 Urine pH 5.0 (5.0 - 8.0) 01/01/21 12:08 Ur Specific [place] 1.010 (1.000-1.030) 01/01/21 12:08 Urine Protein 1+ (NEGATIVE) 01/01/21 12:08 Urine Glucose (UA) Negative (NEGATIVE) 01/01/21 12:08 Urine Ketones Negative (NEGATIVE) 01/01/21 12:08 Urine Occult Blood Negative (NEGATIVE) 01/01/21 12:08 Urine Nitrite Negative (NEGATIVE) 01/01/21 12:08 Urine Bilirubin Negative (NEGATIVE) 01/01/21 12:08 Urine Urobilinogen Normal (NORMAL) 01/01/21 12:08 Ur Leukocyte Esterase Negative (NEGATIVE) 01/01/21 12:08 Urine RBC None seen /HPF (0-3) 01/01/21 12:08 Urine WBC None seen /HPF (0-5) 01/01/21 12:08 Ur Squamous Epith Cells Rare /HPF (NEGATIVE) 01/01/21 12:08 Amorphous Sediment Trace /HPF (NEGATIVE) 01/01/21 12:08 Urine Bacteria Negative /HPF (NEGATIVE) 01/01/21 12:08 Urine Mucus Few /HPF (NEGATIVE) 01/01/21 12:08 Ur Culture Indicated? No/not indicated 01/01/21 12:08 SARS-CoV-2 (PCR) Negative (NEGATIVE) 01/01/21 11:50 Influenza Type A (PCR) Negative (NEGATIVE) 01/01/21 11:50 Influenza Type B (PCR) Negative (NEGATIVE) 01/01/21 11:50 RSV (PCR) Negative (NEGATIVE) 01/01/21 11:50 SARS CoV-2 RNA Rapid DEMETRIO Negative (NEGATIVE) 01/02/21 09:24 - Assessment and Plan 1: acute sigmoid diverticulitis with sealed perforation. mild peritonitis . . ileus with partial SBO .. same clear liquid . same IVF and ATB .. - Problem Patient Problems: Patient Problems Acute diverticulitis (Acute) K57.92
[2021-01-08 10:56] VITALS: BMI 29.9
--- NOTE | 2021-01-08 11:20 | RAD ---
HISTORYAbdominal [id number] multiple priorsFINDINGSOnce again noted are multiple dilated loops of small bowel in the mid abdomen not significantly changed from the prior examination. Very little gas is seen distally within the colon. Small bowel obstruction is suspected. No abnormal masses or abnormal calcifications are identified. Regional skeleton is intact.IMPRESSIONPersistent findings suspicious for small bowel obstruction, unchangedElectronically signed by: RAYMUNDO SMALLS (Jan 08, 2021 11:18:20)
[2021-01-08] MEDS: TORADOL 30 MG VIAL IVP PRN (13:48)
[2021-01-09] MEDS: CLEOCIN 600 MG IV PREMIX 600 MG/50 ML BAG IV SCH ×3 (05:20→22:00)
[2021-01-09] MEDS: ZOSYN VIAL 3.375 GRAMS 3.375 G in NS 50 ML IV + SPIKE MINIBAG* 50 ML IV SCH ×3 (05:20→23:00)
--- NOTE | 2021-01-09 06:42 | RAD ---
HISTORYFollow-up small bowel [id number]/20/21FINDINGSDilated small bowel loops are again identified in the le ft upper quadrant. There is normal caliber small bowel in the right abdomen. Findings are suggestive of at least a partial small bowel obstruction. No abnormal masses or abnormal calcifications are iden tified. Bony thorax is unremarkable.IMPRESSIONPersistent findings suspicious for small bowel obstruct ionElectronically signed by: RAYMUNDO SMALLS (Jan 09, 2021 06:40:29)
[2021-01-09 06:47] LABS: BASOPHILS # (AUTO) 0.1 X10^3/uL (0.0-0.1); BASOPHILS % (AUTO) 0.6 % (0.2-1.0); EOSINOPHILS # (AUTO) 0.4 x10^3/uL (0.0-0.2); EOSINOPHILS % (AUTO) 2.6 % (0.9-2.9); HEMATOCRIT 33.2 % (42.0-54.0); LYMPHOCYTES # (AUTO) 1.7 X10^3/uL (1.3-2.9); LYMPHOCYTES % (AUTO) 12.1 % (21.0-51.0); MEAN CORPUSCULAR HEMOGLOBIN 31.1 pg (27.0-34.0); MEAN CORPUSCULAR HGB CONC 33.3 g/dL (33.0-35.0); MEAN CORPUSCULAR VOLUME 93.5 fL (80.0-100.0); MEAN PLATELET VOLUME 8.1 fL (7.4-11.0); MONOCYTES # (AUTO) 0.9 x10^3/uL (0.3-0.8); MONOCYTES % (AUTO) 6.6 % (0.0-13.0); NEUTROPHILS # (AUTO) 10.6 x10^3/uL (2.2-4.8); NEUTROPHILS % (AUTO) 78.1 % (42.0-75.0); PLATELET COUNT 329 X10^3/uL (150.0-450.0); RED BLOOD COUNT 3.55 X10^6/uL (4.7-6.0); WHITE BLOOD COUNT 13.6 X10^3/uL (3.6-10.0)
[2021-01-09] MEDS: FLAGYL IV PREMIX 500 MG BAG 500 MG/100 ML BAG IV SCH ×3 (06:49→23:00)
[2021-01-09 07:12] LABS: ALANINE AMINOTRANSFERASE 11 Units/L (12-78); ALBUMIN 2.1 g/dL (3.4-5.0); ALKALINE PHOSPHATASE 35 Units/L (46-116); ASPARTATE AMINO TRANSFERASE 21 Units/L (15-37); BLOOD UREA NITROGEN 10 mg/dL (7-18); CALCIUM 7.9 mg/dL (8.5-10.1); CARBON DIOXIDE 25.5 mmol/L (21-32); CHLORIDE 102 mmol/L (98-107); COR CA(FOR HYPOALB) 9.4 mg/dL (8.5-10.1); CREATININE 0.82 mg/dL (0.70-1.30); SODIUM 135 mmol/L (136-145); TOTAL PROTEIN 5.8 g/dL (6.4-8.2); eGFR NON BLACK RACES > 60 (>60)
[2021-01-09] MEDS: D5 1/2 NS 1000 ML 1,000 ML IV SCH ×3 (08:31→14:50)
[2021-01-09] MEDS: PROTONIX INJ 40 MG VIAL IVP SCH ×2 (08:31→20:51)
[2021-01-09] MEDS: LOVENOX INJ 40 MG SYR SC SCH (08:31)
[2021-01-09] MEDS: K-DUR TAB 20 MEQ PO PRN (08:31)
--- NOTE | 2021-01-09 13:11 | RAD ---
HISTORYUNSUCCESSFUL PICC LINE ATTEMPT ORTHO, EYE, NECKSTUDYCHEST, 1 VIEWCOMPARISONNoneFINDINGSAccounting for AP technique and low lung volumes, the cardiac silhouette is normal in size. Lungs are hypoinflated but grossly clear of acute infiltrates. No significant pleural effusion is identified. Left-sided PICC is malpositioned and terminates beyond the field of view within the left neck, likely within the left IJ. There is no pneumothorax.IMPRESSIONMalpositioned left-sided PICC as above without pneumothorax.Lungs hypoinflated but grossly clear.Electronically signed by: MANJEET MORENO (Jan 09, 2021 13:09:01)
[2021-01-09] MEDS: TORADOL 30 MG VIAL IVP PRN ×2 (13:22→20:51)
--- NOTE | 2021-01-09 14:24 | DR.PROGNOT ---
Hospital Progress Notes - Progress Note for Day of: Progress Note Date: 01/09/21 - Chief Complaint Chief Complaint: moderate abdominal pain . no nausea or vomiting . having smal liquid BM . repeated Xray still showing dilated SB loops Lt side . WBC 13.6 .. lytes normal .. afebrile .. - Past Medical Family Social History Past Med/Fam/Surg Hx: No changes since H&P Allergies: Allergies No Known Drug Allergies Allergy (Verified 01/01/21 15:03) - Review Of Systems ROS: No change since H&P - Vital Signs Vital Signs: Temperature 99.1 F Pulse Rate [Left Radial] 79 Pulse Rate 83 Respiratory Rate 18 Blood Pressure [Right Arm] 120/73 Blood Pressure 118/73 O2 Sat by Pulse Oximetry 98 - Physical Exam Oriented: Normal Eyes: Normal Ear: Normal Nose: Normal Throat: Normal Respiratory: Normal Cardiovascular: Normal GI:Auscultation: Decreased GI:Palpation: Normal GI: Tenderness: Diffuse (full with moderate distention and diffuse teness . no rebound .. BS + but hypoactive ..) Speech Pattern: Clear, Appropriate - Laboratory and Diagnostics Result Diagrams: 01/09/21 05:35 01/09/21 11:00 Labs: Laboratory WBC 13.6 X10^3/uL (3.6-10.0) H 01/09/21 05:35 RBC 3.55 X10^6/uL (4.7-6.0) L 01/09/21 05:35 Hgb 11.0 g/dL (13.5-18.0) L 01/09/21 05:35 Hct 33.2 % (42.0-54.0) L 01/09/21 05:35 MCV 93.5 fL (80.0-100.0) 01/09/21 05:35 MCH 31.1 pg (27.0-34.0) 01/09/21 05:35 MCHC 33.3 g/dL (33.0-35.0) 01/09/21 05:35 RDW 14.0 % (11.6-16.5) 01/09/21 05:35 Plt Count 329 X10^3/uL (150.0-450.0) 01/09/21 05:35 Plt Count Comment Adequate (ADEQUATE) 01/08/21 04:52 MPV 8.1 fL (7.4-11.0) 01/09/21 05:35 Neut % (Auto) 78.1 % (42.0-75.0) H 01/09/21 05:35 Lymph % (Auto) 12.1 % (21.0-51.0) L 01/09/21 05:35 [place] % (Auto) 6.6 % (0.0-13.0) 01/09/21 05:35 Eos % (Auto) 2.6 % (0.9-2.9) 01/09/21 05:35 Baso % (Auto) 0.6 % (0.2-1.0) 01/09/21 05:35 Neut # (Auto) 10.6 x10^3/uL (2.2-4.8) H 01/09/21 05:35 Lymph # (Auto) 1.7 X10^3/uL (1.3-2.9) 01/09/21 05:35 [place] # (Auto) 0.9 x10^3/uL (0.3-0.8) H 01/09/21 05:35 Eos # (Auto) 0.4 x10^3/uL (0.0-0.2) H 01/09/21 05:35 Baso # (Auto) 0.1 X10^3/uL (0.0-0.1) 01/09/21 05:35 Absolute Nucleated RBC 0.0 /100WBC 01/09/21 05:35 Total Counted 100 01/08/21 04:52 Neutrophils % (Manual) 72 % (39-76) 01/08/21 04:52 Band Neutrophils % 8 % (0-10) 01/06/21 05:00 Lymphocytes % (Manual) 20 % (13-43) 01/08/21 04:52 Monocytes % (Manual) 3 % (4-9) L 01/08/21 04:52 Eosinophils % (Manual) 5 % (0-6) 01/08/21 04:52 Plt Morphology Comment Normal (NORMAL) 01/08/21 04:52 RBC Morphology Normal (NORMAL) 01/08/21 04:52 Sodium 135 mmol/L (136-145) L 01/09/21 05:35 Corrected Sodium TNP 01/09/21 05:35 Potassium 3.8 mmol/L (3.5-5.1) 01/09/21 11:00 Chloride 102 mmol/L (98-107) 01/09/21 05:35 Carbon Dioxide 25.5 mmol/L (21-32) 01/09/21 05:35 BUN 10 mg/dL (7-18) 01/09/21 05:35 Creatinine 0.82 mg/dL (0.70-1.30) 01/09/21 05:35 Est GFR (MDRD) Af Amer > 60 (>60) 01/09/21 05:35 Est GFR (MDRD) Non-Af > 60 (>60) 01/09/21 05:35 Glucose 106 mg/dL (65-99) H 01/09/21 05:35 Calcium 7.9 mg/dL (8.5-10.1) L 01/09/21 05:35 Corrected Calcium 9.4 mg/dL (8.5-10.1) 01/09/21 05:35 Magnesium 2.6 mg/dL (1.7-2.9) 01/06/21 05:00 Total Bilirubin 0.40 mg/dL (0.2-1.0) 01/09/21 05:35 AST 21 Units/L (15-37) 01/09/21 05:35 ALT 11 Units/L (12-78) L 01/09/21 05:35 Alkaline Phosphatase 35 Units/L (46-116) L 01/09/21 05:35 Total Protein 5.8 g/dL (6.4-8.2) L 01/09/21 05:35 Albumin 2.1 g/dL (3.4-5.0) L 01/09/21 05:35 Globulin 3.7 g/dL (2.5-4.5) 01/09/21 05:35 Albumin/Globulin Ratio 0.6 Ratio (1.1-2.1) L 01/09/21 05:35 Carcinoembryonic Ag 1.4 ng/mL (0.0-3.0) 01/01/21 08:53 Specimen Type Clean catch urine 01/01/21 12:08 Urine Color Yellow (YELLOW) 01/01/21 12:08 Urine Appearance Clear (CLEAR) 01/01/21 12:08 Urine pH 5.0 (5.0 - 8.0) 01/01/21 12:08 Ur Specific [place] 1.010 (1.000-1.030) 01/01/21 12:08 Urine Protein 1+ (NEGATIVE) 01/01/21 12:08 Urine Glucose (UA) Negative (NEGATIVE) 01/01/21 12:08 Urine Ketones Negative (NEGATIVE) 01/01/21 12:08 Urine Occult Blood Negative (NEGATIVE) 01/01/21 12:08 Urine Nitrite Negative (NEGATIVE) 01/01/21 12:08 Urine Bilirubin Negative (NEGATIVE) 01/01/21 12:08 Urine Urobilinogen Normal (NORMAL) 01/01/21 12:08 Ur Leukocyte Esterase Negative (NEGATIVE) 01/01/21 12:08 Urine RBC None seen /HPF (0-3) 01/01/21 12:08 Urine WBC None seen /HPF (0-5) 01/01/21 12:08 Ur Squamous Epith Cells Rare /HPF (NEGATIVE) 01/01/21 12:08 Amorphous Sediment Trace /HPF (NEGATIVE) 01/01/21 12:08 Urine Bacteria Negative /HPF (NEGATIVE) 01/01/21 12:08 Urine Mucus Few /HPF (NEGATIVE) 01/01/21 12:08 Ur Culture Indicated? No/not indicated 01/01/21 12:08 SARS-CoV-2 (PCR) Negative (NEGATIVE) 01/01/21 11:50 Influenza Type A (PCR) Negative (NEGATIVE) 01/01/21 11:50 Influenza Type B (PCR) Negative (NEGATIVE) 01/01/21 11:50 RSV (PCR) Negative (NEGATIVE) 01/01/21 11:50 SARS CoV-2 RNA Rapid DEMETRIO Negative (NEGATIVE) 01/02/21 09:24 - Assessment and Plan 1: acute sigmoid diverticulitis with sealed perforation. mild peritonitis . . ileus with partial SBO .. same clear liquid . same IVF and ATB .. d/w Pt possible surgery if the ileus does'nt improve . to place PIC line and start TPN .. - Problem Patient Problems: Patient Problems Acute diverticulitis (Acute) K57.92
--- NOTE | 2021-01-09 14:31 | RAD ---
HISTORYPICC LINE PLACEMENTSTUDYCHEST, 1 VIEWCOMPARISONSame day chest radiograph.TECHNIQUEAP view of the chestFINDINGSInterval removal of left-sided PICC line. Right upper extremity PICC line in good position at the superior cavoatrial junction. Cardiac and mediastinal contours are within normal limits. Blunted costophrenic sulci remain. No pneumothorax.IMPRESSIONRight upper extremity PICC line in good position. Blunted costophrenic sulci can be seen with scar, small pleural effusions, or parenchymal opacity such as atelectasis.Electronically signed by: Doug Mendoza (Jan 09, 2021 14:27:48)
--- NOTE | 2021-01-09 14:39 | DR.UPDATE ---
H&P Update History and Physical Update: History and Physical reviewed and patient examined. Changes noted: NO Yes with the following:will place picc as ordered by Dr Ulloa H&P Reviewed: Yes Patient was examined?: Yes Procedures (ALL) - Central Line Placement PCM.CLCO: written consent Time out performed: Yes Patient placed pm monitor/pulse ox: Yes MD prep: mask, gown, gloves, other Centrial line prep: chlorhexidine scrub, sterile drapes applied Local anesthsia used: lidocane 1% Ultrasound used for placement: Yes (right basilic id'd via u/s) Central line lumen ininserted: double (5.5fr arrowcath. 50cm cath; 10cm exposed) Post procedure: good blood return, all ports aspirated, flushed,capped, sterile dressing applied Post procedure xray: tip oc catheter in good position, no pneumothorax seen Patient tolerated procedure: Yes Complications: none, other (picc initially placed in left basilic, but catheter continuously migrated to jugular after 10 attempts.)
[2021-01-09] MEDS ORDERED: PHARMACY CONSULT - TPN XX SCH (15:00)
[2021-01-09] MEDS ORDERED: DEXTROSE 10% 1,000 ML IV PRN (15:29)
[2021-01-09] MEDS ORDERED: HumuLIN R SUBCUT PRN (15:29)
[2021-01-09 15:59] LABS: PHOSPHORUS 3.5 mg/dL (2.6-4.7)
[2021-01-09] MEDS: CLINIMIX 5 %/20 % 1,000 ML with MVI INJ (ADULT) 10 ML, TPN ELECTROLYTES 20 ML IV SCH ×3 (16:00)
[2021-01-09] MEDS: LIPOSYN III 20% 250ML 250 ML IV SCH (20:52)
[2021-01-10] MEDS: D5 1/2 NS 1000 ML 1,000 ML IV SCH ×5 (04:21→20:45)
[2021-01-10] MEDS: CLEOCIN 600 MG IV PREMIX 600 MG/50 ML BAG IV SCH ×3 (05:09→21:50)
--- NOTE | 2021-01-10 05:59 | RAD ---
HISTORYFollow-up small bowel [id number]/21/2021FINDINGSOnce again noted are dilated small bowel loops in the left upper quadrant. More normal size small bowel loops are present in the right lower quadrant as is gas within the colon. Findings are consistent with at least a partial small bowel obstruction. No ab normal masses or abnormal calcifications are identified. Regional skeleton is intact.IMPRESSIONPersis tent findings suspicious for at least partial small bowel obstructionElectronically signed by: SHANICE SMALLS (Jan 10, 2021 05:58:01)
[2021-01-10] MEDS: FLAGYL IV PREMIX 500 MG BAG 500 MG/100 ML BAG IV SCH ×3 (06:02→23:28)
[2021-01-10 06:17] LABS: BASOPHILS % (AUTO) 0.4 % (0.2-1.0); EOSINOPHILS # (AUTO) 0.3 x10^3/uL (0.0-0.2); HEMATOCRIT 30.5 % (42.0-54.0); HEMOGLOBIN 10.3 g/dL (13.5-18.0); LYMPHOCYTES # (AUTO) 1.8 X10^3/uL (1.3-2.9); LYMPHOCYTES % (AUTO) 16.3 % (21.0-51.0); MEAN CORPUSCULAR HEMOGLOBIN 31.4 pg (27.0-34.0); MEAN CORPUSCULAR HGB CONC 33.8 g/dL (33.0-35.0); MEAN CORPUSCULAR VOLUME 92.8 fL (80.0-100.0); MEAN PLATELET VOLUME 8.1 fL (7.4-11.0); MONOCYTES # (AUTO) 0.7 x10^3/uL (0.3-0.8); MONOCYTES % (AUTO) 6.4 % (0.0-13.0); NEUTROPHILS # (AUTO) 8.1 x10^3/uL (2.2-4.8); NEUTROPHILS % (AUTO) 73.9 % (42.0-75.0); PLATELET COUNT 289 X10^3/uL (150.0-450.0); RED BLOOD COUNT 3.28 X10^6/uL (4.7-6.0)
[2021-01-10 06:21] LABS: PREALBUMIN 12.7 mg/dL (18-35.7)
[2021-01-10 06:28] LABS: ALANINE AMINOTRANSFERASE 9 Units/L (12-78); ALKALINE PHOSPHATASE 26 Units/L (46-116); ASPARTATE AMINO TRANSFERASE 16 Units/L (15-37); BLOOD UREA NITROGEN 7 mg/dL (7-18); CALCIUM 7.6 mg/dL (8.5-10.1); CARBON DIOXIDE 24.9 mmol/L (21-32); CHLORIDE 104 mmol/L (98-107); COR CA(FOR HYPOALB) 9.2 mg/dL (8.5-10.1); SODIUM 138 mmol/L (136-145); TOTAL PROTEIN 5.5 g/dL (6.4-8.2); eGFR NON BLACK RACES > 60 (>60)
[2021-01-10 07:01] LABS: BAND NEUTROPHILS % 4 % (0-10); BASOPHILS % (MANUAL) 1 % (0-1); METAMYELOCYTES % 1; PLATELET MORPHOLOGY COMMENT NORMAL (NORMAL)
[2021-01-10] MEDS: ZOSYN VIAL 3.375 GRAMS 3.375 G in NS 50 ML IV + SPIKE MINIBAG* 50 ML IV SCH ×3 (07:40→21:50)
--- NOTE | 2021-01-10 09:21 | DR.PROGNOT ---
Hospital Progress Notes - Progress Note for Day of: Progress Note Date: 01/10/21 - Chief Complaint Chief Complaint: only mild abdominal pain . no nausea or vomiting . having smal liquid BM . repeated Xray still showing dilated SB loops Lt side . WBC 11.. lytes normal .. afebrile .. - Past Medical Family Social History Past Med/Fam/Surg Hx: No changes since H&P Allergies: Allergies No Known Drug Allergies Allergy (Verified 01/01/21 15:03) - Review Of Systems ROS: No change since H&P - Vital Signs Vital Signs: Temperature 99.0 F Pulse Rate [Left Radial] 74 Pulse Rate 83 Respiratory Rate 22 Blood Pressure [Right Arm] 115/64 Blood Pressure 118/73 O2 Sat by Pulse Oximetry 95 - Physical Exam Oriented: Normal Eyes: Normal Ear: Normal Nose: Normal Throat: Normal Respiratory: Normal Cardiovascular: Normal GI:Auscultation: Decreased GI:Palpation: Normal GI: Tenderness: Diffuse (full with moderate distention and diffuse teness . no rebound .. BS + but hypoactive ..) Speech Pattern: Clear, Appropriate - Laboratory and Diagnostics Result Diagrams: 01/10/21 05:20 01/10/21 05:20 Labs: Laboratory WBC 11.0 X10^3/uL (3.6-10.0) H 01/10/21 05:20 RBC 3.28 X10^6/uL (4.7-6.0) L 01/10/21 05:20 Hgb 10.3 g/dL (13.5-18.0) L 01/10/21 05:20 Hct 30.5 % (42.0-54.0) L 01/10/21 05:20 MCV 92.8 fL (80.0-100.0) 01/10/21 05:20 MCH 31.4 pg (27.0-34.0) 01/10/21 05:20 MCHC 33.8 g/dL (33.0-35.0) 01/10/21 05:20 RDW 14.0 % (11.6-16.5) 01/10/21 05:20 Plt Count 289 X10^3/uL (150.0-450.0) 01/10/21 05:20 Plt Count Comment Adequate (ADEQUATE) 01/10/21 05:20 MPV 8.1 fL (7.4-11.0) 01/10/21 05:20 Neut % (Auto) 73.9 % (42.0-75.0) 01/10/21 05:20 Lymph % (Auto) 16.3 % (21.0-51.0) L 01/10/21 05:20 [place] % (Auto) 6.4 % (0.0-13.0) 01/10/21 05:20 Eos % (Auto) 3.0 % (0.9-2.9) H 01/10/21 05:20 Baso % (Auto) 0.4 % (0.2-1.0) 01/10/21 05:20 Neut # (Auto) 8.1 x10^3/uL (2.2-4.8) H 01/10/21 05:20 Lymph # (Auto) 1.8 X10^3/uL (1.3-2.9) 01/10/21 05:20 [place] # (Auto) 0.7 x10^3/uL (0.3-0.8) 01/10/21 05:20 Eos # (Auto) 0.3 x10^3/uL (0.0-0.2) H 01/10/21 05:20 Baso # (Auto) 0.0 X10^3/uL (0.0-0.1) 01/10/21 05:20 Absolute Nucleated RBC 0.0 /100WBC 01/10/21 05:20 Total Counted 100 01/10/21 05:20 Neutrophils % (Manual) 65 % (39-76) 01/10/21 05:20 Band Neutrophils % 4 % (0-10) 01/10/21 05:20 Lymphocytes % (Manual) 22 % (13-43) 01/10/21 05:20 Monocytes % (Manual) 7 % (4-9) 01/10/21 05:20 Eosinophils % (Manual) 5 % (0-6) 01/08/21 04:52 Basophils % (Manual) 1 % (0-1) 01/10/21 05:20 Metamyelocytes % 1 01/10/21 05:20 Plt Morphology Comment Normal (NORMAL) 01/10/21 05:20 RBC Morphology Normal (NORMAL) 01/10/21 05:20 Sodium 138 mmol/L (136-145) 01/10/21 05:20 Corrected Sodium TNP 01/10/21 05:20 Potassium 3.6 mmol/L (3.5-5.1) 01/10/21 05:20 Chloride 104 mmol/L (98-107) 01/10/21 05:20 Carbon Dioxide 24.9 mmol/L (21-32) 01/10/21 05:20 BUN 7 mg/dL (7-18) 01/10/21 05:20 Creatinine 0.80 mg/dL (0.70-1.30) 01/10/21 05:20 Est GFR (MDRD) Af Amer > 60 (>60) 01/10/21 05:20 Est GFR (MDRD) Non-Af > 60 (>60) 01/10/21 05:20 Glucose 108 mg/dL (65-99) H 01/10/21 05:20 POC Glucose (mg/dL) 96 mg/dL (65-99) 01/10/21 07:12 Calcium 7.6 mg/dL (8.5-10.1) L 01/10/21 05:20 Corrected Calcium 9.2 mg/dL (8.5-10.1) 01/10/21 05:20 Phosphorus 3.5 mg/dL (2.6-4.7) 01/09/21 11:00 Magnesium 2.0 mg/dL (1.7-2.9) 01/09/21 11:00 Total Bilirubin 0.30 mg/dL (0.2-1.0) 01/10/21 05:20 AST 16 Units/L (15-37) 01/10/21 05:20 ALT 9 Units/L (12-78) L 01/10/21 05:20 Alkaline Phosphatase 26 Units/L (46-116) L 01/10/21 05:20 Total Protein 5.5 g/dL (6.4-8.2) L 01/10/21 05:20 Albumin 2.0 g/dL (3.4-5.0) L 01/10/21 05:20 Globulin 3.5 g/dL (2.5-4.5) 01/10/21 05:20 Albumin/Globulin Ratio 0.6 Ratio (1.1-2.1) L 01/10/21 05:20 Prealbumin 12.7 mg/dL (18-35.7) L 01/10/21 05:20 Triglycerides 143 mg/dL (0-150) 01/09/21 11:00 Carcinoembryonic Ag 1.4 ng/mL (0.0-3.0) 01/01/21 08:53 Specimen Type Clean catch urine 01/01/21 12:08 Urine Color Yellow (YELLOW) 01/01/21 12:08 Urine Appearance Clear (CLEAR) 01/01/21 12:08 Urine pH 5.0 (5.0 - 8.0) 01/01/21 12:08 Ur Specific [place] 1.010 (1.000-1.030) 01/01/21 12:08 Urine Protein 1+ (NEGATIVE) 01/01/21 12:08 Urine Glucose (UA) Negative (NEGATIVE) 01/01/21 12:08 Urine Ketones Negative (NEGATIVE) 01/01/21 12:08 Urine Occult Blood Negative (NEGATIVE) 01/01/21 12:08 Urine Nitrite Negative (NEGATIVE) 01/01/21 12:08 Urine Bilirubin Negative (NEGATIVE) 01/01/21 12:08 Urine Urobilinogen Normal (NORMAL) 01/01/21 12:08 Ur Leukocyte Esterase Negative (NEGATIVE) 01/01/21 12:08 Urine RBC None seen /HPF (0-3) 01/01/21 12:08 Urine WBC None seen /HPF (0-5) 01/01/21 12:08 Ur Squamous Epith Cells Rare /HPF (NEGATIVE) 01/01/21 12:08 Amorphous Sediment Trace /HPF (NEGATIVE) 01/01/21 12:08 Urine Bacteria Negative /HPF (NEGATIVE) 01/01/21 12:08 Urine Mucus Few /HPF (NEGATIVE) 01/01/21 12:08 Ur Culture Indicated? No/not indicated 01/01/21 12:08 SARS-CoV-2 (PCR) Negative (NEGATIVE) 01/01/21 11:50 Influenza Type A (PCR) Negative (NEGATIVE) 01/01/21 11:50 Influenza Type B (PCR) Negative (NEGATIVE) 01/01/21 11:50 RSV (PCR) Negative (NEGATIVE) 01/01/21 11:50 SARS CoV-2 RNA Rapid DEMETRIO Negative (NEGATIVE) 01/02/21 09:24 - Assessment and Plan 1: acute sigmoid diverticulitis with sealed perforation. mild peritonitis . . ileus with partial SBO .. on full liquid diet now . same TPO and ATB .. - Problem Patient Problems: Patient Problems Acute diverticulitis (Acute) K57.06
[2021-01-10] MEDS: CLINIMIX 5 %/20 % 1,000 ML with MVI INJ (ADULT) 10 ML, TPN ELECTROLYTES 20 ML IV SCH ×3 (09:27)
[2021-01-10] MEDS: PROTONIX INJ 40 MG VIAL IVP SCH ×2 (09:27→21:45)
[2021-01-10] MEDS: LOVENOX INJ 40 MG SYR SC SCH (09:27)
[2021-01-10] MEDS ORDERED: FLAGYL IV PREMIX 500 MG BAG 500 MG/100 ML BAG IV ONE (13:57)
[2021-01-10] MEDS: TORADOL 30 MG VIAL IVP PRN (21:50)
[2021-01-10] MEDS: LIPOSYN III 20% 250ML 250 ML IV SCH (23:27)
[2021-01-11] MEDS: LIPOSYN III 20% 250ML 250 ML IV SCH ×2 (02:05→21:10)
[2021-01-11] MEDS ORDERED: ROBITUSSIN DM ONE (04:33)
[2021-01-11] MEDS: ROBITUSSIN DM PO PRN ×3 (04:35→22:25)
[2021-01-11] MEDS: ZOSYN VIAL 3.375 GRAMS 3.375 G in NS 50 ML IV + SPIKE MINIBAG* 50 ML IV SCH (05:45)
[2021-01-11] MEDS: CLEOCIN 600 MG IV PREMIX 600 MG/50 ML BAG IV SCH ×3 (05:45→21:15)
[2021-01-11 06:15] LABS: BASOPHILS # (AUTO) 0.1 X10^3/uL (0.0-0.1); BASOPHILS % (AUTO) 0.5 % (0.2-1.0); EOSINOPHILS # (AUTO) 0.2 x10^3/uL (0.0-0.2); EOSINOPHILS % (AUTO) 0.8 % (0.9-2.9); HEMATOCRIT 35.2 % (42.0-54.0); HEMOGLOBIN 11.8 g/dL (13.5-18.0); LYMPHOCYTES # (AUTO) 1.2 X10^3/uL (1.3-2.9); LYMPHOCYTES % (AUTO) 5.5 % (21.0-51.0); MEAN CORPUSCULAR HEMOGLOBIN 31.3 pg (27.0-34.0); MEAN CORPUSCULAR HGB CONC 33.5 g/dL (33.0-35.0); MEAN CORPUSCULAR VOLUME 93.4 fL (80.0-100.0); MEAN PLATELET VOLUME 8.5 fL (7.4-11.0); MONOCYTES # (AUTO) 1.1 x10^3/uL (0.3-0.8); MONOCYTES % (AUTO) 5.2 % (0.0-13.0); NEUTROPHILS # (AUTO) 18.9 x10^3/uL (2.2-4.8); PLATELET COUNT 363 X10^3/uL (150.0-450.0); RED BLOOD COUNT 3.77 X10^6/uL (4.7-6.0); WHITE BLOOD COUNT 21.5 X10^3/uL (3.6-10.0)
[2021-01-11 06:26] LABS: ALANINE AMINOTRANSFERASE 12 Units/L (12-78); ALBUMIN 2.1 g/dL (3.4-5.0); ALKALINE PHOSPHATASE 26 Units/L (46-116); ASPARTATE AMINO TRANSFERASE 17 Units/L (15-37); BLOOD UREA NITROGEN 8 mg/dL (7-18); CALCIUM 7.9 mg/dL (8.5-10.1); CARBON DIOXIDE 22.7 mmol/L (21-32); CHLORIDE 102 mmol/L (98-107); COR CA(FOR HYPOALB) 9.4 mg/dL (8.5-10.1); COR NA(FOR HYPERGLY) 135 mmol/L (136-145); CREATININE 0.87 mg/dL (0.70-1.30); SODIUM 134 mmol/L (136-145); TOTAL PROTEIN 5.6 g/dL (6.4-8.2); eGFR NON BLACK RACES > 60 (>60)
[2021-01-11] MEDS: FLAGYL IV PREMIX 500 MG BAG 500 MG/100 ML BAG IV SCH ×3 (07:05→22:35)
[2021-01-11] MEDS: D5 1/2 NS 1000 ML 1,000 ML IV SCH ×2 (07:09→15:39)
[2021-01-11 07:35] LABS: BAND NEUTROPHILS % 4 % (0-10); PLATELET MORPHOLOGY COMMENT NORMAL (NORMAL)
--- NOTE | 2021-01-11 08:42 | RAD ---
HISTORYF/U FOR SBO PSH: ORTHO, [id number]/22/2021FINDINGSThere is a patchy radiopacity in the right base with effacemen t of the diaphragm. There is increase air in the stomach since prior study. There is persistent abnor mal dilated small-bowel loops in the left upper quadrant. There is decrease air through the colon in comparison with prior study. No abnormal intra-abdominal calcifications. Osseus structures are unrema rkable.IMPRESSIONPersistent abnormal dilated small-bowel loops in the left upper quadrant and mild th e distended stomach with decrease air throughout the colon, suspected worsening small bowel obstructi on.Electronically signed by: Riri Traore (Jan 11, 2021 08:40:28)
[2021-01-11] MEDS: LOVENOX INJ 40 MG SYR SC SCH (09:29)
[2021-01-11] MEDS: PROTONIX INJ 40 MG VIAL IVP SCH ×2 (09:29→21:10)
--- NOTE | 2021-01-11 09:38 | DR.PROGNOT ---
Hospital Progress Notes - Progress Note for Day of: Progress Note Date: 01/11/21 - Chief Complaint Chief Complaint: c/o severe dry coughing started last night . stareted to have low grade fever as well with leukocytosis .. mild abdominal pain . no nausea or vomiting . having liquid BM ,. repeated Xray still showing dilated SB loops Lt side . WBC 21.. lytes normal .. - Past Medical Family Social History Past Med/Fam/Surg Hx: No changes since H&P Allergies: Allergies No Known Drug Allergies Allergy (Verified 01/01/21 15:03) - Review Of Systems ROS: No change since H&P - Vital Signs Vital Signs: Temperature 100.2 F Pulse Rate [Left Radial] 98 Pulse Rate 83 Respiratory Rate 16 Blood Pressure [Right Arm] 109/66 Blood Pressure 118/73 O2 Sat by Pulse Oximetry 96 - Physical Exam Oriented: Normal Eyes: Normal Ear: Normal Nose: Normal Throat: Normal Respiratory: Rhonchi (bilateral rhonchi .) Cardiovascular: Normal GI:Auscultation: Decreased GI:Palpation: Normal GI: Tenderness: Diffuse (full with moderate distention and diffuse teness . no rebound .. BS + but hypoactive ..) Speech Pattern: Clear, Appropriate - Laboratory and Diagnostics Result Diagrams: 01/11/21 04:10 01/11/21 04:10 Labs: Laboratory WBC 21.5 X10^3/uL (3.6-10.0) H D 01/11/21 04:10 RBC 3.77 X10^6/uL (4.7-6.0) L 01/11/21 04:10 Hgb 11.8 g/dL (13.5-18.0) L 01/11/21 04:10 Hct 35.2 % (42.0-54.0) L 01/11/21 04:10 MCV 93.4 fL (80.0-100.0) 01/11/21 04:10 MCH 31.3 pg (27.0-34.0) 01/11/21 04:10 MCHC 33.5 g/dL (33.0-35.0) 01/11/21 04:10 RDW 14.0 % (11.6-16.5) 01/11/21 04:10 Plt Count 363 X10^3/uL (150.0-450.0) 01/11/21 04:10 Plt Count Comment Adequate (ADEQUATE) 01/11/21 04:10 MPV 8.5 fL (7.4-11.0) 01/11/21 04:10 Neut % (Auto) 88.0 % (42.0-75.0) H 01/11/21 04:10 Lymph % (Auto) 5.5 % (21.0-51.0) L 01/11/21 04:10 [place] % (Auto) 5.2 % (0.0-13.0) 01/11/21 04:10 Eos % (Auto) 0.8 % (0.9-2.9) L 01/11/21 04:10 Baso % (Auto) 0.5 % (0.2-1.0) 01/11/21 04:10 Neut # (Auto) 18.9 x10^3/uL (2.2-4.8) H 01/11/21 04:10 Lymph # (Auto) 1.2 X10^3/uL (1.3-2.9) L 01/11/21 04:10 [place] # (Auto) 1.1 x10^3/uL (0.3-0.8) H 01/11/21 04:10 Eos # (Auto) 0.2 x10^3/uL (0.0-0.2) 01/11/21 04:10 Baso # (Auto) 0.1 X10^3/uL (0.0-0.1) 01/11/21 04:10 Absolute Nucleated RBC 0.0 /100WBC 01/11/21 04:10 Total Counted 100 01/11/21 04:10 Neutrophils % (Manual) 87 % (39-76) H 01/11/21 04:10 Band Neutrophils % 4 % (0-10) 01/11/21 04:10 Lymphocytes % (Manual) 7 % (13-43) L 01/11/21 04:10 Monocytes % (Manual) 1 % (4-9) L 01/11/21 04:10 Eosinophils % (Manual) 1 % (0-6) 01/11/21 04:10 Basophils % (Manual) 1 % (0-1) 01/10/21 05:20 Metamyelocytes % 1 01/10/21 05:20 Plt Morphology Comment Normal (NORMAL) 01/11/21 04:10 RBC Morphology Normal (NORMAL) 01/11/21 04:10 Sodium 134 mmol/L (136-145) L 01/11/21 04:10 Corrected Sodium 135 mmol/L (136-145) L 01/11/21 04:10 Potassium 3.6 mmol/L (3.5-5.1) 01/11/21 04:10 Chloride 102 mmol/L (98-107) 01/11/21 04:10 Carbon Dioxide 22.7 mmol/L (21-32) 01/11/21 04:10 BUN 8 mg/dL (7-18) 01/11/21 04:10 Creatinine 0.87 mg/dL (0.70-1.30) 01/11/21 04:10 Est GFR (MDRD) Af Amer > 60 (>60) 01/11/21 04:10 Est GFR (MDRD) Non-Af > 60 (>60) 01/11/21 04:10 Glucose 132 mg/dL (65-99) H 01/11/21 04:10 POC Glucose (mg/dL) 139 mg/dL (65-99) H 01/11/21 06:25 Calcium 7.9 mg/dL (8.5-10.1) L 01/11/21 04:10 Corrected Calcium 9.4 mg/dL (8.5-10.1) 01/11/21 04:10 Phosphorus 3.5 mg/dL (2.6-4.7) 01/09/21 11:00 Magnesium 2.0 mg/dL (1.7-2.9) 01/09/21 11:00 Total Bilirubin 0.30 mg/dL (0.2-1.0) 01/11/21 04:10 AST 17 Units/L (15-37) 01/11/21 04:10 ALT 12 Units/L (12-78) 01/11/21 04:10 Alkaline Phosphatase 26 Units/L (46-116) L 01/11/21 04:10 Total Protein 5.6 g/dL (6.4-8.2) L 01/11/21 04:10 Albumin 2.1 g/dL (3.4-5.0) L 01/11/21 04:10 Globulin 3.5 g/dL (2.5-4.5) 01/11/21 04:10 Albumin/Globulin Ratio 0.6 Ratio (1.1-2.1) L 01/11/21 04:10 Prealbumin 12.7 mg/dL (18-35.7) L 01/10/21 05:20 Triglycerides 143 mg/dL (0-150) 01/09/21 11:00 Carcinoembryonic Ag 1.4 ng/mL (0.0-3.0) 01/01/21 08:53 Specimen Type Clean catch urine 01/01/21 12:08 Urine Color Yellow (YELLOW) 01/01/21 12:08 Urine Appearance Clear (CLEAR) 01/01/21 12:08 Urine pH 5.0 (5.0 - 8.0) 01/01/21 12:08 Ur Specific [place] 1.010 (1.000-1.030) 01/01/21 12:08 Urine Protein 1+ (NEGATIVE) 01/01/21 12:08 Urine Glucose (UA) Negative (NEGATIVE) 01/01/21 12:08 Urine Ketones Negative (NEGATIVE) 01/01/21 12:08 Urine Occult Blood Negative (NEGATIVE) 01/01/21 12:08 Urine Nitrite Negative (NEGATIVE) 01/01/21 12:08 Urine Bilirubin Negative (NEGATIVE) 01/01/21 12:08 Urine Urobilinogen Normal (NORMAL) 01/01/21 12:08 Ur Leukocyte Esterase Negative (NEGATIVE) 01/01/21 12:08 Urine RBC None seen /HPF (0-3) 01/01/21 12:08 Urine WBC None seen /HPF (0-5) 01/01/21 12:08 Ur Squamous Epith Cells Rare /HPF (NEGATIVE) 01/01/21 12:08 Amorphous Sediment Trace /HPF (NEGATIVE) 01/01/21 12:08 Urine Bacteria Negative /HPF (NEGATIVE) 01/01/21 12:08 Urine Mucus Few /HPF (NEGATIVE) 01/01/21 12:08 Ur Culture Indicated? No/not indicated 01/01/21 12:08 SARS-CoV-2 (PCR) Negative (NEGATIVE) 01/01/21 11:50 Influenza Type A (PCR) Negative (NEGATIVE) 01/01/21 11:50 Influenza Type B (PCR) Negative (NEGATIVE) 01/01/21 11:50 RSV (PCR) Negative (NEGATIVE) 01/01/21 11:50 SARS CoV-2 RNA Rapid DEMETRIO Negative (NEGATIVE) 01/02/21 09:24 - Assessment and Plan 1: acute bronchitis . acute sigmoid diverticulitis with sealed perforation. mild peritonitis . . ileus with partial SBO .. on full liquid diet now . to repeat Covid 19 test . chest Xray . same TPN and ATB . - Problem Patient Problems: Patient Problems Acute diverticulitis (Acute) K57.11
--- NOTE | 2021-01-11 10:24 | RAD ---
HISTORYCOUGH, FEVER ORTHO, EYESTUDYCHEST, 1 [id number]/2021FINDINGSThe trachea is midline. There is a right-sided PICC line with the tip in the SVC. Large body habitus. There is unchanged elevation of the right diaphragm. There is a small radiopacity in the left lower lobe. No pneumothorax or pleural effusionIMPRESSIONSmall left lower lobe radiopacity atelectasis versus pneumoniaElectronically signed by: Riri Traore (Jan 11, 2021 10:21:23)
[2021-01-11] MEDS: CLINIMIX 5 %/20 % 1,000 ML with MVI INJ (ADULT) 10 ML, TPN ELECTROLYTES 20 ML IV SCH ×3 (14:41)
[2021-01-11] MEDS ORDERED: LASIX IVP ONE (17:19)
[2021-01-11] MEDS ORDERED: INVANZ INJ 1 GM VIAL 1 GM in NS 100 ML IV + SPIKE MINIBAG* 100 ML IV SCH (18:00)
--- NOTE | 2021-01-11 18:06 | DR.CONSULT ---
CONSULT Consultation for Day of: Date: 01/11/21 Chief Complaint Chief Complaint: SOB Allergies Allergies Allergy/AdvReac Type Severity Reaction Status Date / Time No Known Drug Allergies Allergy Verified 01/01/21 15:03 History of Present Illness History of Present Illness: 45 yo wm with SOB this am and generally feeling bad this am. The patient has been here for nearly 2 weeks for an ileus and SBO from a ruptured diverticula. CXR showed a RLL opacity which may be an early pneumonia. WBC count is elevated today along with his temperature. Past Medical History Past Medical History: Arthritis and Dyslipidemia Past Surgical History Surgical History: Ortho Surgery Social History Does patient currently use any type of tobacco product: Yes Have you used tobacco products in the last 12 months: Yes Type of Tobacco Use: DIP How many years tobacco product used: 3 Does any household member use tobacco: Yes Alcohol Use: Occasionally Drug Use: None Medications Home Medications: No Known Drug Allergies Allergy (Verified 01/01/21 15:03) CONTINUE taking the following medications fenofibrate 160 mg PO DAILY 01/01/21 [History] rosuvastatin 5 mg PO DAILY 01/01/21 [History] Review of Systems Constitutional: No Symptoms Reported Eyes: No Symptoms Reported ENT: No Symptoms Reported Respiratory: Cough and Dry Cardiovascular: No Symptoms Reported Gastrointestinal: Other (abdominal distension) Genitourinary: No Symptoms Reported Musculoskeletal: No Symptoms Reported Skin: No Symptoms Reported Neurological: No Symptoms Reported Physical Exam Vital Signs: Temperature 99.1 F Pulse Rate [Left Radial] 95 Pulse Rate 83 Respiratory Rate 20 Blood Pressure [Right Arm] 116/64 Blood Pressure 118/73 O2 Sat by Pulse Oximetry 94 Oriented: Normal Eyes: Normal Ear: Normal Nose: Normal Throat: Normal Respiratory: RML Rhonchi and LML Rhonchi : Normal Auscultation: Bowel Sounds: Decreased Palpation: Other (abdominal distention) Tenderness: Normal Musculoskeletal: Normal Psychiatric: Normal Mood Description: Calm Affect: Normal Speech Pattern: Clear Plan Plan: Possible Nosocomial pneumonia. Will cover with Invanz. Possible fluid overload. Will Check BNP today and in am.
[2021-01-11] MEDS ORDERED: TYLENOL 325 MG TAB PO PRN (20:26)
[2021-01-11] MEDS ORDERED: TYLENOL 325 MG TAB PO ONE (20:43)
[2021-01-12] MEDS: ROBITUSSIN DM PO PRN (02:28)
[2021-01-12] MEDS: CLEOCIN 600 MG IV PREMIX 600 MG/50 ML BAG IV SCH (05:15)
[2021-01-12] MEDS: FLAGYL IV PREMIX 500 MG BAG 500 MG/100 ML BAG IV SCH (06:10)
--- NOTE | 2021-01-12 06:37 | RAD ---
HISTORYFollow-up small bowel [id number]/23/2021FINDINGSThere is a single dilated loop of small bowel in the l eft upper quadrant but with decreasing gas distally within the small and large bowel. Findings are st ill consistent with small-bowel obstruction. No abnormal masses or abnormal calcifications are identi fied. Regional skeleton is intact.IMPRESSIONPersistently dilated small bowel loop in the left upper q uadrant with decreasing air distally within the small and large bowel suggestive of continuing small bowel obstructionElectronically signed by: RAYMUNDO SMALLS (Jan 12, 2021 06:35:23)
[2021-01-12 06:47] LABS: BASOPHILS % (AUTO) 0.3 % (0.2-1.0); EOSINOPHILS # (AUTO) 0.2 x10^3/uL (0.0-0.2); EOSINOPHILS % (AUTO) 0.9 % (0.9-2.9); HEMATOCRIT 32.5 % (42.0-54.0); LYMPHOCYTES # (AUTO) 1.6 X10^3/uL (1.3-2.9); LYMPHOCYTES % (AUTO) 8.8 % (21.0-51.0); MEAN CORPUSCULAR HEMOGLOBIN 30.9 pg (27.0-34.0); MEAN PLATELET VOLUME 8.2 fL (7.4-11.0); MONOCYTES # (AUTO) 1.4 x10^3/uL (0.3-0.8); MONOCYTES % (AUTO) 7.4 % (0.0-13.0); NEUTROPHILS # (AUTO) 15.3 x10^3/uL (2.2-4.8); NEUTROPHILS % (AUTO) 82.6 % (42.0-75.0); PLATELET COUNT 362 X10^3/uL (150.0-450.0); RED BLOOD COUNT 3.57 X10^6/uL (4.7-6.0); RED CELL DISTRIBUTION WIDTH 13.9 % (11.6-16.5); WHITE BLOOD COUNT 18.5 X10^3/uL (3.6-10.0)
[2021-01-12 06:58] LABS: ALANINE AMINOTRANSFERASE 12 Units/L (12-78); ALBUMIN 2.2 g/dL (3.4-5.0); ALKALINE PHOSPHATASE 27 Units/L (46-116); ASPARTATE AMINO TRANSFERASE 16 Units/L (15-37); BLOOD UREA NITROGEN 8 mg/dL (7-18); CALCIUM 8.1 mg/dL (8.5-10.1); CARBON DIOXIDE 25.8 mmol/L (21-32); CHLORIDE 101 mmol/L (98-107); COR CA(FOR HYPOALB) 9.5 mg/dL (8.5-10.1); COR NA(FOR HYPERGLY) 135 mmol/L (136-145); CREATININE 0.98 mg/dL (0.70-1.30); SODIUM 135 mmol/L (136-145); eGFR NON BLACK RACES > 60 (>60)
[2021-01-12 07:05] LABS: MAGNESIUM 1.9 mg/dL (1.7-2.9); PHOSPHORUS 3.2 mg/dL (2.6-4.7)
[2021-01-12] MEDS ORDERED: LASIX IVP ONE (07:35)
[2021-01-12] MEDS ORDERED: NS 100 ML IV 100 ML ONE (08:13)
[2021-01-12] MEDS: PROTONIX INJ 40 MG VIAL IVP SCH (08:39)
[2021-01-12] MEDS: LOVENOX INJ 40 MG SYR SC SCH (08:40)
[2021-01-12] MEDS ORDERED: INVANZ INJ 1 GM VIAL 1 GM in NS 50 ML IV + SPIKE MINIBAG* 50 ML IV SCH (09:00)
[2021-01-12 11:28] VITALS: BP 90/54
--- NOTE | 2021-01-12 18:22 | PCM.PROG ---
Progress Note Progress Note for Day of Date of Exam: 01/12/21 Subjective Subjective: Feels much better after receiving lasix last pm. Past Medical Family Social History Past Med/Fam/Surg Hx: No changes since H&P Allergies: Allergies No Known Drug Allergies Allergy (Verified 01/01/21 15:03) Review of Systems ROS: No change since H&P Vital Signs and I&O's Vital Signs: Temperature 99.1 F Pulse Rate [Left Radial] 106 Pulse Rate 83 Respiratory Rate 20 Blood Pressure [Left Arm] 90/54 Blood Pressure [Right Arm] 112/62 Blood Pressure 118/73 O2 Sat by Pulse Oximetry 95 Intake and Output: Intake & Output 01/10/21 01/11/21 01/12/21 01/13/21 11:59 11:59 11:59 11:59 Intake Total 6259 / 6259 7078 / 7078 730 / 730 Output Total 1800 / 1800 650 / 650 Balance 4459 / 4459 6428 / 6428 730 / 730 Physical Exam Oriented: Normal Eyes: Normal Ear: Normal Nose: Normal Throat: Normal Respiratory: Normal Cardiovascular: Normal : Normal Auscultation: Bowel Sounds: Decreased Tenderness: Normal Musculoskeletal: Normal Psychiatric: Normal Mood Description: Calm Affect: Normal Speech Pattern: Clear and Appropriate Laboratory and Diagnostics Result Diagrams: 01/12/21 06:15 01/12/21 06:15 Labs: Laboratory WBC 18.5 X10^3/uL (3.6-10.0) H 01/12/21 06:15 RBC 3.57 X10^6/uL (4.7-6.0) L 01/12/21 06:15 Hgb 11.0 g/dL (13.5-18.0) L 01/12/21 06:15 Hct 32.5 % (42.0-54.0) L 01/12/21 06:15 MCV 91.0 fL (80.0-100.0) 01/12/21 06:15 MCH 30.9 pg (27.0-34.0) 01/12/21 06:15 MCHC 34.0 g/dL (33.0-35.0) 01/12/21 06:15 RDW 13.9 % (11.6-16.5) 01/12/21 06:15 Plt Count 362 X10^3/uL (150.0-450.0) 01/12/21 06:15 Plt Count Comment Adequate (ADEQUATE) 01/11/21 04:10 MPV 8.2 fL (7.4-11.0) 01/12/21 06:15 Neut % (Auto) 82.6 % (42.0-75.0) H 01/12/21 06:15 Lymph % (Auto) 8.8 % (21.0-51.0) L 01/12/21 06:15 [place] % (Auto) 7.4 % (0.0-13.0) 01/12/21 06:15 Eos % (Auto) 0.9 % (0.9-2.9) 01/12/21 06:15 Baso % (Auto) 0.3 % (0.2-1.0) 01/12/21 06:15 Neut # (Auto) 15.3 x10^3/uL (2.2-4.8) H 01/12/21 06:15 Lymph # (Auto) 1.6 X10^3/uL (1.3-2.9) 01/12/21 06:15 [place] # (Auto) 1.4 x10^3/uL (0.3-0.8) H 01/12/21 06:15 Eos # (Auto) 0.2 x10^3/uL (0.0-0.2) 01/12/21 06:15 Baso # (Auto) 0.0 X10^3/uL (0.0-0.1) 01/12/21 06:15 Absolute Nucleated RBC 0.0 /100WBC 01/12/21 06:15 Total Counted 100 01/11/21 04:10 Neutrophils % (Manual) 87 % (39-76) H 01/11/21 04:10 Band Neutrophils % 4 % (0-10) 01/11/21 04:10 Lymphocytes % (Manual) 7 % (13-43) L 01/11/21 04:10 Monocytes % (Manual) 1 % (4-9) L 01/11/21 04:10 Eosinophils % (Manual) 1 % (0-6) 01/11/21 04:10 Basophils % (Manual) 1 % (0-1) 01/10/21 05:20 Metamyelocytes % 1 01/10/21 05:20 Plt Morphology Comment Normal (NORMAL) 01/11/21 04:10 RBC Morphology Normal (NORMAL) 01/11/21 04:10 Sodium 135 mmol/L (136-145) L 01/12/21 06:15 Corrected Sodium 135 mmol/L (136-145) L 01/12/21 06:15 Potassium 3.6 mmol/L (3.5-5.1) 01/12/21 06:15 Chloride 101 mmol/L (98-107) 01/12/21 06:15 Carbon Dioxide 25.8 mmol/L (21-32) 01/12/21 06:15 BUN 8 mg/dL (7-18) 01/12/21 06:15 Creatinine 0.98 mg/dL (0.70-1.30) 01/12/21 06:15 Est GFR (MDRD) Af Amer > 60 (>60) 01/12/21 06:15 Est GFR (MDRD) Non-Af > 60 (>60) 01/12/21 06:15 Glucose 114 mg/dL (65-99) H 01/12/21 06:15 POC Glucose (mg/dL) 121 mg/dL (65-99) H 01/11/21 20:16 Lactic Acid 1.0 mmol/L (0.4-2.0) 01/12/21 06:15 Calcium 8.1 mg/dL (8.5-10.1) L 01/12/21 06:15 Corrected Calcium 9.5 mg/dL (8.5-10.1) 01/12/21 06:15 Phosphorus 3.2 mg/dL (2.6-4.7) 01/12/21 06:15 Magnesium 1.9 mg/dL (1.7-2.9) 01/12/21 06:15 Total Bilirubin 0.50 mg/dL (0.2-1.0) 01/12/21 06:15 AST 16 Units/L (15-37) 01/12/21 06:15 ALT 12 Units/L (12-78) 01/12/21 06:15 Alkaline Phosphatase 27 Units/L (46-116) L 01/12/21 06:15 B-Natriuretic Peptide 35.7 pg/mL (0-79) 01/12/21 06:15 Total Protein 6.0 g/dL (6.4-8.2) L 01/12/21 06:15 Albumin 2.2 g/dL (3.4-5.0) L 01/12/21 06:15 Globulin 3.8 g/dL (2.5-4.5) 01/12/21 06:15 Albumin/Globulin Ratio 0.6 Ratio (1.1-2.1) L 01/12/21 06:15 Prealbumin 12.7 mg/dL (18-35.7) L 01/10/21 05:20 Triglycerides 118 mg/dL (0-150) 01/12/21 06:15 Carcinoembryonic Ag 1.4 ng/mL (0.0-3.0) 01/01/21 08:53 Specimen Type Clean catch urine 01/01/21 12:08 Urine Color Yellow (YELLOW) 01/01/21 12:08 Urine Appearance Clear (CLEAR) 01/01/21 12:08 Urine pH 5.0 (5.0 - 8.0) 01/01/21 12:08 Ur Specific [place] 1.010 (1.000-1.030) 01/01/21 12:08 Urine Protein 1+ (NEGATIVE) 01/01/21 12:08 Urine Glucose (UA) Negative (NEGATIVE) 01/01/21 12:08 Urine Ketones Negative (NEGATIVE) 01/01/21 12:08 Urine Occult Blood Negative (NEGATIVE) 01/01/21 12:08 Urine Nitrite Negative (NEGATIVE) 01/01/21 12:08 Urine Bilirubin Negative (NEGATIVE) 01/01/21 12:08 Urine Urobilinogen Normal (NORMAL) 01/01/21 12:08 Ur Leukocyte Esterase Negative (NEGATIVE) 01/01/21 12:08 Urine RBC None seen /HPF (0-3) 01/01/21 12:08 Urine WBC None seen /HPF (0-5) 01/01/21 12:08 Ur Squamous Epith Cells Rare /HPF (NEGATIVE) 01/01/21 12:08 Amorphous Sediment Trace /HPF (NEGATIVE) 01/01/21 12:08 Urine Bacteria Negative /HPF (NEGATIVE) 01/01/21 12:08 Urine Mucus Few /HPF (NEGATIVE) 01/01/21 12:08 Ur Culture Indicated? No/not indicated 01/01/21 12:08 SARS-CoV-2 (PCR) Negative (NEGATIVE) 01/11/21 11:04 Influenza Type A (PCR) Negative (NEGATIVE) 01/11/21 11:04 Influenza Type B (PCR) Negative (NEGATIVE) 01/11/21 11:04 RSV (PCR) Negative (NEGATIVE) 01/11/21 11:04 SARS CoV-2 RNA Rapid DEMETRIO Negative (NEGATIVE) 01/02/21 09:24 Radiology Reviewed: Yes Rhythm: Paced Plan (1) SOB (shortness of breath): Status: Resolved Narrative Support Text: Feels much better and is adamant about going home. Plan: Discharge home when ok with Gen. Surgery.
== END 2021-01-12 11:20 | disposition left against medical advice (07) | DRG 391 ==
LOC: ER 08:33 → OBS 12:18 → MED/SURG 01-10 17:23
PROVIDERS: ADMIT Surgery; ATTEND Surgery
DX: K56.690 Other partial intestinal obstruction; I87.2 Venous insufficiency (chronic) (peripheral); K57.20 Diverticulitis of large intestine with perforation and abscess without bleeding; R06.02 Shortness of breath; K65.8 Other peritonitis; E78.2 Mixed hyperlipidemia; R60.0 Localized edema; Z20.822 Contact with and (suspected) exposure to COVID-19; Z53.29 Procedure and treatment not carried out because of patient's decision for other reasons